=== PATIENT | male | born 1960 | race Caucasian/White ===

== ENCOUNTER → 2017-04-24 | Outpatient (CLI) | payer MEDICARE, MEDICAID ==
--- NOTE | 2017-04-24 13:28 | Diagnostic Imaging Report ---
EXAMINATION: Three views of the left toes. INDICATION: Injury to the left great toe. FINDINGS: Along the dorsal aspect of the base of the distal phalanx of the great toe, there is a bone fragment that appears well-corticated measuring 4 mm. This is favored to be related to an old injury. No definitive acute fracture is seen. No subluxation or dislocation. No radiopaque foreign body. IMPRESSION: A 4 mm bone fragment at the dorsal aspect of the base of the distal phalanx of the great toe appears well-corticated and is favored to be related to an old injury. If this is the site of injury and tenderness, then an acute component could be considered. Correlate with focal physical exam. Dictated by: Dictated on workstation # [id number]
--- NOTE | 2017-04-24 13:48 | Diagnostic Imaging Report ---
EXAMINATION: Three views of the left foot. INDICATION: Fall. FINDINGS: There is a 4 mm corticated fragment along the distal aspect of the base of the distal phalanx of the left great toe. This is favored to be secondary to an old injury. No acute fracture is seen. There is mild degenerative change along the first MTP joint and varus deformity along the interphalangeal joint. No radiopaque foreign body is noted. IMPRESSION: There is a 4 mm well-corticated fragment along the dorsal aspect of the base of the distal phalanx of the left great toe which is favored to be secondary to an old injury. No definite acute fracture. Correlate clinically. Dictated by: Dictated on workstation # [id number]
== END ==
LOC: RAD 08:54
PROVIDERS: ATTEND Nurse Practitioner Family
DX: M79.675 Pain in left toe(s) (principal); M79.672 Pain in left foot; W19.XXXA Unspecified fall, initial encounter
CPT/HCPCS: 73630; 73660

== ENCOUNTER → 2017-08-12 | Outpatient (CLI) | payer MEDICARE, MEDICAID ==
--- NOTE | 2017-08-12 16:43 | Diagnostic Imaging Report ---
Three views of the right shoulder. INDICATION: Fall. FINDINGS: No fracture, dislocation, or radiopaque foreign body. The acromioclavicular joint demonstrates minimal inferior osteophytes and degenerative changes. The glenohumeral joint appears unremarkable. IMPRESSION: Unremarkable exam. Dictated by: Dictated on workstation # [id number]
--- NOTE | 2017-08-12 16:50 | Diagnostic Imaging Report ---
Three views of the right wrist. INDICATION: Injury. FINDINGS: No fracture, dislocation or radiopaque foreign body is seen. Joint alignment appears satisfactory. IMPRESSION: Unremarkable exam. Dictated by: Dictated on workstation # [id number]
== END ==
LOC: RAD 13:15
PROVIDERS: ATTEND Nurse Practitioner Family
DX: S69.91XA Unspecified injury of right wrist, hand and finger(s), initial encounter (principal); S49.91XA Unspecified injury of right shoulder and upper arm, initial encounter; W19.XXXA Unspecified fall, initial encounter; Y99.8 Other external cause status
CPT/HCPCS: 73030; 73110

== ENCOUNTER → 2022-02-16 | Outpatient (CLI) | payer MEDICARE, MEDICAID ==
[2022-02-16 12:13] LABS: HEMATOCRIT 42 % (40-54); HEMOGLOBIN 14.3 g/dL (13.3-17.7); MEAN CORPUSCULAR HEMOGLOBIN 31 pg (25-34); MEAN CORPUSCULAR HGB CONC 34 g/dL (32-36); MEAN CORPUSCULAR VOLUME 92 fL (80-99); MEAN PLATELET VOLUME 9.6 fL (9.0-12.2); PLATELET COUNT 197 10^3/uL (130-400); WHITE BLOOD COUNT 9.2 10^3/uL (4.3-11.0)
[2022-02-16 12:30] LABS: ALBUMIN 4.1 GM/DL (3.2-4.5); BILIRUBIN,TOTAL 0.3 MG/DL (0.1-1.0); CREATININE SERUM 0.93 MG/DL (0.60-1.30); TOTAL PROTEIN 7.2 GM/DL (6.4-8.2)
[2022-02-16 12:50] LABS: CARBAMAZEPINE (TEGRETOL) 8.2 UG/ML (4.0-12.0)
== END ==
LOC: CARD 12:00
PROVIDERS: ATTEND Family Medicine
DX: E03.9 Hypothyroidism, unspecified (principal); I10 Essential (primary) hypertension; R00.1 Bradycardia, unspecified; R50.9 Fever, unspecified
CPT/HCPCS: 36415; 80053; 80156; 84443; 84484; 85027; 93005

== ENCOUNTER → 2022-08-17 | Outpatient (CLI) | payer MEDICARE, MEDICAID ==
--- NOTE | 2022-08-17 12:51 | Diagnostic Imaging Report ---
INDICATION: FALL, RT KNEE PAIN COMPARISON: None. FINDINGS: 3 views of the right knee joint demonstrate no acute fracture or dislocation. No focal osseous lesions are seen. Mild osteoarthritic changes are noted. No significant joint effusion is seen. The surrounding soft tissue structures are unremarkable. There are no radiopaque foreign bodies. IMPRESSION: 1. No acute fractures or dislocations of the right knee joint. 2. Mild osteoarthritic changes. Dictated by: Dictated on workstation # [id number]
== END ==
LOC: RAD 11:15
PROVIDERS: ATTEND Family Medicine
DX: M17.11 Unilateral primary osteoarthritis, right knee (principal)
CPT/HCPCS: 73562

== ENCOUNTER 2022-11-23 15:08 | Inpatient (IN) | payer MEDICARE, MEDICAID ==
[~2022-11-23] VITALS: Ht 175.3 cm; Wt 103.7 kg
--- NOTE | 2022-11-23 15:32 | ED Cardiac General ---
History of Present Illness General Chief Complaint: Cardiac/General Problems Stated Complaint: LOW HR Source: patient Exam Limitations: no limitations History of Present Illness Date Seen by Provider: Nov 23, 2022 Time Seen by Provider: 15:27 Initial Comments 62-year-old intellectually disabled male from a correction here in [place]. History is provided by his caregiver/staff from the correction. They report they were advised by Dr. Malhotra's office to come to the emergency room as they noted bradycardia on a routine vitals check today. They state he has been acting normal and has not complained of any chest pain or shortness of breath. Has a history of hypertension and is on a combination drug of lisinopril/HCTZ. They state that his heart rate has been low in the 30s for the past 2 days but blood pressure has been fine and he has been acting normally. Timing/Duration: changing over time Severity: moderate NTG SL MANAGER OF BUSINESS: No ASA po MANAGER OF BUSINESS: No Associated Systoms: Denies Symptoms Allergies and Home Medications Allergies Coded Allergies: phenytoin (Verified Allergy, Unknown, 11/23/22) Patient Home Medication List Home Medication List Reviewed: Yes Review of Systems Review of Systems Constitutional: see HPI Physical Exam Vital Signs Vital Signs - First Documented 11/23/22 15:17 Temp 36.7 Pulse 33 Resp 16 B/P (MAP) 171/90 (117) Pulse Ox 95 O2 Delivery Room Air Capillary Refill : Height, Weight, BMI Height: '" Weight: lbs. oz. kg; BMI Method: General Appearance: No Apparent Distress, WD/WN, Other (Alert and oriented. Walks into the emergency room. Voices no complaints. Blood pressure is fine at 170/90. Heart rate is 33 with no correlation between P waves and QRS complexes consistent with a third-degree heart block.) Neck: Full Range of Motion, Normal Inspection Respiratory: No Accessory Muscle Use, No Respiratory Distress Cardiovascular: Normal Peripheral Pulses, Bradycardia Gastrointestinal: Normal Bowel Sounds, Non Tender, Soft Extremity: Normal Capillary Refill, Normal Inspection Neurologic/Psychiatric: Alert, Oriented x3 Skin: Normal Color, Warm/Dry Progress/Results/Core Measures Results/Orders Lab Results Laboratory Tests Test 11/23/22 15:49 Range/Units White Blood Count 9.4 4.3-11.0 10^3/uL Red Blood Count 4.60 4.30-5.52 10^6/uL Hemoglobin 14.5 13.3-17.7 g/dL Hematocrit 42 40-54 % Mean Corpuscular Volume 90 80-99 fL Mean Corpuscular Hemoglobin 32 25-34 pg Mean Corpuscular Hemoglobin Concent 35 32-36 g/dL Red Cell Distribution Width 11.9 10.0-14.5 % Platelet Count 231 130-400 10^3/uL Mean Platelet Volume 10.0 9.0-12.2 fL Immature Granulocyte % (Auto) 0 % Neutrophils (%) (Auto) 65 42-75 % Lymphocytes (%) (Auto) 22 12-44 % Monocytes (%) (Auto) 10 0-12 % Eosinophils (%) (Auto) 3 0-10 % Basophils (%) (Auto) 1 0-10 % Neutrophils # (Auto) 6.1 1.8-7.8 X 10^3 Lymphocytes # (Auto) 2.1 1.0-4.0 X 10^3 Monocytes # (Auto) 0.9 0.0-1.0 X 10^3 Eosinophils # (Auto) 0.3 0.0-0.3 10^3/uL Basophils # (Auto) 0.1 0.0-0.1 10^3/uL Immature Granulocyte # (Auto) 0.0 0.0-0.1 10^3/uL Prothrombin Time 13.6 12.2-14.7 SEC INR Comment 1.0 0.8-1.4 Activated Partial Thromboplast Time 29 24-35 SEC Sodium Level 135 135-145 MMOL/L Potassium Level 4.0 3.6-5.0 MMOL/L Chloride Level 102 98-107 MMOL/L Carbon Dioxide Level 24 21-32 MMOL/L Anion Gap 9 5-14 MMOL/L Blood Urea Nitrogen 21 H 7-18 MG/DL Creatinine 0.93 0.60-1.30 MG/DL Estimat Glomerular Filtration Rate 92 BUN/Creatinine Ratio 23 Glucose Level 102 70-105 MG/DL Calcium Level 9.1 8.5-10.1 MG/DL Corrected Calcium 9.0 8.5-10.1 MG/DL Magnesium Level 2.4 1.6-2.4 MG/DL Total Bilirubin 0.2 0.1-1.0 MG/DL Aspartate Amino Transf (AST/SGOT) 13 5-34 U/L Alanine Aminotransferase (ALT/SGPT) 12 0-55 U/L Alkaline Phosphatase 73 40-136 U/L Myoglobin 61.3 10.0-92.0 NG/ML Troponin I < 0.028 <0.028 NG/ML B-Type Natriuretic Peptide 34.2 <100.0 PG/ML Total Protein 7.1 6.4-8.2 GM/DL Albumin 4.1 3.2-4.5 GM/DL Vital Signs/I&O 11/23/22 11/23/22 15:17 15:17 Temp 36.7 Pulse 33 Resp 16 B/P (MAP) 171/90 (117) Pulse Ox 95 O2 Delivery Room Air Room Air Departure Communication (Admissions) Will order troponin CBC CMP to evaluate for contributing factors. He is perfusing well, mentating well, not unstable and does not need emergent t ranscutaneous or transvenous pacing. He is not on any calcium channel or beta blockers. He has a history of hypertension and is on lisinopril/HCTZ. 164-CBC shows no evidence of anemia, hemoglobin stable. Chemistry shows normal BUN and creatinine, negative troponin. Normal potassium. Patient has remained with a heart rate of 30-35 with a high degree AV block here in the emergency room. I spoke with Dr. Schneider. Spoke with Dr. Pisano from hospitalist services. Will admit to cardiology, consult hospitalist services. ICU status overnight. We will keep transcutaneous pads on the patient in case he develops hemodynamic compromise however currently his blood pressure is maintained in the 160 range. Impression Primary Impression: Third degree heart block Disposition: ADMITTED INPATIENT Condition: Stable Admissions Decision to Admit Reason: Admit from ER (General) Decision to Admit/Date: Nov 23, 2022 Time/Decision to Admit Time: 15:30 Departure-Patient Inst. Referrals: CHRISTIAN LOERA DO (PCP/Family) Primary Care Physician VIET GUILLEN APRN Nov 23, 2022 15:32
--- NOTE | 2022-11-23 15:56 | Diagnostic Imaging Report ---
INDICATION: Bradycardia. TIME OF EXAM: 3:42 p.m. No prior studies are available for comparison. FINDINGS: The heart size appears normal. Lungs are clear. No infiltrates are seen. There is no effusion or pneumothorax. IMPRESSION: No acute cardiopulmonary process is detected. Dictated by: Dictated on workstation # [id number]
[2022-11-23 15:57] LABS: BASOPHILS # (AUTO) 0.1 10^3/uL (0.0-0.1); BASOPHILS % (AUTO) 1 % (0-10); EOSINOPHILS # (AUTO) 0.3 10^3/uL (0.0-0.3); EOSINOPHILS % (AUTO) 3 % (0-10); HEMATOCRIT 42 % (40-54); HEMOGLOBIN 14.5 g/dL (13.3-17.7); LYMPHOCYTES # (AUTO) 2.1 X 10^3 (1.0-4.0); LYMPHOCYTES % (AUTO) 22 % (12-44); MEAN CORPUSCULAR HEMOGLOBIN 32 pg (25-34); MEAN CORPUSCULAR HGB CONC 35 g/dL (32-36); MEAN CORPUSCULAR VOLUME 90 fL (80-99); MONOCYTES # (AUTO) 0.9 X 10^3 (0.0-1.0); MONOCYTES % (AUTO) 10 % (0-12); NEUTROPHILS # (AUTO) 6.1 X 10^3 (1.8-7.8); NEUTROPHILS % (AUTO) 65 % (42-75); PLATELET COUNT 231 10^3/uL (130-400); WHITE BLOOD COUNT 9.4 10^3/uL (4.3-11.0)
[2022-11-23 16:10] LABS: PROTHROMBIN TIME PATIENT 13.6 SEC (12.2-14.7)
[2022-11-23 16:13] LABS: ALBUMIN 4.1 GM/DL (3.2-4.5)
[2022-11-23 16:15] LABS: CALCIUM 9.1 MG/DL (8.5-10.1)
[2022-11-23 16:16] LABS: TOTAL PROTEIN 7.1 GM/DL (6.4-8.2)
[2022-11-23 16:18] LABS: BILIRUBIN,TOTAL 0.2 MG/DL (0.1-1.0)
[2022-11-23 16:20] LABS: CREATININE SERUM 0.93 MG/DL (0.60-1.30)
[2022-11-23 16:22] LABS: MAGNESIUM 2.4 MG/DL (1.6-2.4)
--- NOTE | 2022-11-23 17:16 | Cardiology History & Physical ---
HPI-Cardiology Cardiology H&P Date of Admission 11/23/22 Primary Care Physician Campos Pablo Attending Physician ANTIONE PINO MD, MA, FACP, FACC, FSCAI, CCDS Consulting Physician [facility] 62 yo man with intellectual disablilities, resident of a fdc, found to have low pulse rate on routine vitals at his home and sent to the ER for further eval. He sees Dr Nunez in Cardiology f/u and is known to have advanced/complete AV block with junctional escape that has been found on routine ECGs and from which he remains asymptomatic. He has not been report cp or palp or syncope or other symptoms. He currently does not report any symptoms. He is accompanied by his niece who helped with history. Review of Systems-Cardiology Review of Systems Constitutional: No weight loss, No weight gain; other Eyes: No vision change Ears/Nose/Throat: No ear discharge, No nasal drainage, No recent hearing loss Respiratory: No shortness of breath Cardiovascular: As described under HPI Gastrointestinal: No nausea, No vomiting Genitourinary: No dysuria, No hematuria Musculoskeletal: No back pain, No joint pain Skin: No rash, No ulcerations Psychiatric/Neurological: other (weakness and contractures of L hand, crhonic) Hematologic: No bleeding abnormalities AIT-Tesygy-Nfqooo Hx Patient Social History Smoking Status: Never a Smoker Have you traveled recently?: No Alcohol Use?: No Pt feels they are or have been: No Past Medical History PMH As described under Assessment. Family Medical History Family Medical History: No fam h/o early CAD or SCD Allergies and Home Medications Allergies Coded Allergies: phenytoin (Verified Allergy, Unknown, 11/23/22) Patient Home Medication List Home Medication List Reviewed: Yes Physical Exam-Cardiology Physical Exam Vital Signs/I&O 11/23/22 11/23/22 15:17 15:17 Temp 36.7 Pulse 33 Resp 16 B/P (MAP) 171/90 (117) Pulse Ox 95 O2 Delivery Room Air Room Air Capillary Refill : Less Than 3 Seconds Constitutional: other (slow to respond but appears oriented to person and place and answers some queestions) HEENT: PERRL, hearing is well preserved; No xanthelasmas are seen Neck: carotid pulses are 2 + bilaterally Respiratory: No accessory muscle use; chest expansion is symmetric, other (good, bilat air enty) Cardiovascular: regular rate-rhythm, S1 and S2, systolic murmur (soft STEVE at card base) Gastrointestinal: No tender; soft; No guarding, No rebound; audible bowel sounds Extremities: No clubbing, No cyanosis, No significant edema Neurologic/Psychiatric: other (mental status exam as noted above; able to move all limbs, but power is diminished in the L hand and there appear to be contractures) Skin: No rash, No ulcerations; other (some abrasions on the L wrist) Data Review Labs Laboratory Tests 11/23/22 15:49: White Blood Count 9.4, Red Blood Count 4.60, Hemoglobin 14.5, Hematocrit 42, Mean Corpuscular Volume 90, Mean Corpuscular Hemoglobin 32, Mean Corpuscular Hemoglobin Concent 35, Red Cell Distribution Width 11.9, Platelet Count 231, Mean Platelet Volume 10.0, Immature Granulocyte % (Auto) 0, Neutrophils (%) (Auto) 65, Lymphocytes (%) (Auto) 22, Monocytes (%) (Auto) 10, Eosinophils (%) (Auto) 3, Basophils (%) (Auto) 1, Neutrophils # (Auto) 6.1, Lymphocytes # (Auto) 2.1, Monocytes # (Auto) 0.9, Eosinophils # (Auto) 0.3, Basophils # (Auto) 0.1, Immature Granulocyte # (Auto) 0.0, Prothrombin Time 13.6, INR Comment 1.0, Activated Partial Thromboplast Time 29, Sodium Level 135, Potassium Level 4.0, Chloride Level 102, Carbon Dioxide Level 24, Anion Gap 9, Blood Urea Nitrogen 21H, Creatinine 0.93, Estimat Glomerular Filtration Rate 92, BUN/Creatinine Ratio 23, Glucose Level 102, Calcium Level 9.1, Corrected Calcium 9.0, Magnesium Level 2.4, Total Bilirubin 0.2, Aspartate Amino Transf (AST/SGOT) 13, Alanine Aminotransferase (ALT/SGPT) 12, Alkaline Phosphatase 73, Myoglobin 61.3, Troponin I < 0.028, B-Type Natriuretic Peptide 34.2, Total Protein 7.1, Albumin 4.1 Laboratory Tests 11/23/22 15:49 A/P-Cardiology Assessment/Admission Diagnosis Advanced AV block - asymptomatic - apparently chronic. Documented in his last visit to Dr Nunez in Jul 2022 Hypertension - on lisinopril-HCTZ Hyperlipidemia - on atorvastatin ?seizure disorder - on carbamazepine Cognitive/intellectual disabilities Weakness/contractures of L hand, chronic Admission Status: Inpatient Order (span 2 midnights) Reason for Inpatient Admission: Advanced AV block Discussion and Recomendations * Monitor. This appears to be a chronic problem that has been treated conservatively in the past * If long pauses or if symptomatic or if heart rate remains profoundly low, then consider perm pacemaker * Continue home meds * Echo * Monitor labs Clinical Quality Measures AMI/AHF: ASA po Prior to arrival: ANTIONE López MD FACP FACC CCDS Nov 23, 2022 17:16
--- NOTE | 2022-11-23 17:23 | Tele-ICU Progress Note ---
Subjective Date Seen by a Provider: Nov 23, 2022 Subjective/Events-last exam This virtual visit was conducted using real time audio/video. Thank you for asking us to see this patient for asymptomatic complete heart block. Intellectually disabled, lives in residential. Recent events: Staff found HR 30s when checking vitals. PMH: HTN on Lisinopril/HCTZ. PE: Appears comfortable. HR 30-35, BP 170/90. HEENT: No obvious masses, adenopathy or JVD. Chest: clear to auscultation. CV: CHB. S1 S2 No murmur or added sounds. Abd: Non-tender. Bowel sounds Y. : Unremarkable. Viramontes . COMPLIANCE PROJECT MANAGER/psychiatric: Grossly intact. No obvious focal findings. Extremities: edema. Capillary refill < 3 seconds. Skin: unremarkable. Results: Elevated BUN 21 CXR: Poor quality, clear abdi.. Available chart/ vitals / labs / images reviewed. Video assessment done using teleICU camera, rest of exam as per RN. A/P: Critical Care: critically ill patient. Cont. monitoring, IVF, transcutaneous pads. Discussed with RN Stacy. Asked RN to reach out to eICU if any questions or concerns later. Time spent with patient/coordination of care with other health professionals (mins): 20. Sepsis Event Evaluation Height, Weight, BMI Height: '" Weight: lbs. oz. kg; 28.00 BMI Method: Exam Exam Patient acknowledged, consented, and participated in this virtual visit which was conducted using real time audio/video Vital Signs Date Time Temp Pulse Resp B/P (MAP) Pulse Ox O2 Delivery O2 Flow Rate FiO2 11/23/22 15:17 95 Room Air 11/23/22 15:17 36.7 33 16 171/90 (117) Room Air Height & Weight Height: '" Weight: lbs. oz. kg; 28.00 BMI Method: General Appearance: No Apparent Distress, WD/WN, Other (Alert and oriented. Walks into the emergency room. Voices no complaints. Blood pressure is fine at 170/90. Heart rate is 33 with no correlation between P waves and QRS complexes consistent with a third-degree heart block.) Neck: Full Range of Motion, Normal Inspection Respiratory: No Accessory Muscle Use, No Respiratory Distress Cardiovascular: Normal Peripheral Pulses, Bradycardia Capillary Refill: Less Than 3 Seconds Extremity: Normal Capillary Refill, Normal Inspection Neurologic/Psychiatric: Alert, Oriented x3 Skin: Normal Color, Warm/Dry Results Lab Laboratory Tests 11/23/22 15:49 Assessment/Plan Assessment/Plan See free text. Critical Care: Critically Ill Patient DAVIDA STRONG MD Nov 23, 2022 17:23
[2022-11-23] MEDS: NS IV 1000 ML 1,000 ML IV SCH (18:50)
[2022-11-23] MEDS: carBAMazepine 100 MG (TEGretol) CHEW PO SCH (20:39)
[2022-11-23] MEDS ORDERED: carBAMazepine 200 MG (TEGretol) TAB PO SCH (21:00)
[2022-11-24 04:21] LABS: BASOPHILS # (AUTO) 0.1 10^3/uL (0.0-0.1); BASOPHILS % (AUTO) 1 % (0-10); EOSINOPHILS # (AUTO) 0.4 10^3/uL (0.0-0.3); EOSINOPHILS % (AUTO) 4 % (0-10); HEMATOCRIT 41 % (40-54); LYMPHOCYTES # (AUTO) 2.4 10^3/uL (1.0-4.0); LYMPHOCYTES % (AUTO) 27 % (12-44); MEAN CORPUSCULAR HEMOGLOBIN 31 pg (25-34); MEAN CORPUSCULAR HGB CONC 35 g/dL (32-36); MEAN CORPUSCULAR VOLUME 90 fL (80-99); MEAN PLATELET VOLUME 10.4 fL (9.0-12.2); MONOCYTES # (AUTO) 0.9 10^3/uL (0.0-1.0); MONOCYTES % (AUTO) 10 % (0-12); NEUTROPHILS # (AUTO) 5.2 10^3/uL (1.8-7.8); NEUTROPHILS % (AUTO) 58 % (42-75); PLATELET COUNT 208 10^3/uL (130-400)
[2022-11-24 04:33] LABS: ALBUMIN 3.7 GM/DL (3.2-4.5); POTASSIUM 3.8 MMOL/L (3.6-5.0)
[2022-11-24 04:34] LABS: CALCIUM 9.1 MG/DL (8.5-10.1)
[2022-11-24 04:36] LABS: TOTAL PROTEIN 6.5 GM/DL (6.4-8.2)
[2022-11-24 04:38] LABS: BILIRUBIN,TOTAL 0.3 MG/DL (0.1-1.0)
[2022-11-24 04:39] LABS: CREATININE SERUM 0.86 MG/DL (0.60-1.30)
[2022-11-24 04:43] LABS: MAGNESIUM 2.2 MG/DL (1.6-2.4)
--- NOTE | 2022-11-24 08:50 | Consultation - Hospitalist ---
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 He ahs known bradycardia since February of last year and has been following with Dr Nunez. He is normaly in the 40s. Yesterday staff at [facility] noted him ot have a heart rate in nery 30s and brought him to the hospital for evaluation. His sister is at bedside and provides all of the history. He was found to have a complete heart block and admitted to cardiology for evaluation for possible pacemaker. He has had rates as low at 27 overnight but remains asymptomatic. Source: patient Date Seen 11/24/22 Attending Physician Campos Pablo DO PCP Admitting Physician: Ruben Schneider MD [facility] Attending Physician: Ruben Schneider MD [facility] Referring Physician Date of Admission Nov 23, 2022 at 16:41 Home Medications & Allergies Home Medications Reviewed patient Home Medication Reconciliation performed by pharmacy medication reconciliations ceramics technician and/or nursing. Patients Allergies have been reviewed. Allergies Allergies Coded Allergies phenytoin (Verified Allergy, Unknown, 11/23/22) Past Nhtkapg-Twsbod-Ekohhw Hx Patient Social History Employed/Student: unemployed Tobacco Use?: No Smoking Status: Never a Smoker Smokeless Tobacco Frequency: Never a User Use of E-Cig and/or Vaping dev: No Use of E-Cig and/or Vaping Khai: Never a User Substance use?: No Alcohol Use?: No Pt feels they are or have been: No Immunizations Up To Date Date of Influenza Vaccine: Aug 23, 2022 Current Status Advance Directives: Yes Communicates: Verbally Primary Language: Angolan Preferred Spoken Language: Angolan Is interpretation needed?: No Sensory deficits: Vision impairment Implanted or Applied Medical D: Orthopedic hardware Past Medical History Meningitis (at 9mo with left sided weakness and intellectual disability) Review of Systems Constitutional: see HPI Physical Exam Physical Exam Vital Signs Vital Signs - First Documented 11/23/22 15:17 Temp 36.7 Pulse 33 Resp 16 B/P (MAP) 171/90 (117) Pulse Ox 95 O2 Delivery Room Air Capillary Refill : Less Than 3 Seconds Height, Weight, BMI Height: '" Weight: lbs. oz. kg; 28.05 BMI Method: General Appearance: No Apparent Distress, WD/WN, Other (Alert and oriented. Walks into the emergency room. Voices no complaints. Blood pressure is fine at 170/90. Heart rate is 33 with no correlation between P waves and QRS complexes consistent with a third-degree heart block.) Neck: Full Range of Motion, Normal Inspection Respiratory: No Accessory Muscle Use, No Respiratory Distress Cardiovascular: Normal Peripheral Pulses, Bradycardia Gastrointestinal: Normal Bowel Sounds, Non Tender, Soft Extremity: Swelling (left ankle very minimal) Neurologic/Psychiatric: Alert, Oriented x3 Skin: Normal Color, Warm/Dry Results Results/Procedures Labs Laboratory Tests 11/23/22 15:49 11/24/22 03:40 Patient resulted labs reviewed. Imaging: Reviewed Imaging Report Imaging [facility], [place] NAME: KERI ROGEL [facility] REC#: [id number] PT STATUS: REG ER : 1960 PHYSICIAN: ELY RUBIO APRN ADMIT DATE: 11/23/22/ER Signed Date of Exam:11/23/22 CHEST 1 VIEW, AP/PA ONLY INDICATION: Bradycardia. TIME OF EXAM: 3:42 p.m. No prior studies are available for comparison. FINDINGS: The heart size appears normal. Lungs are clear. No infiltrates are seen. There is no effusion or pneumothorax. IMPRESSION: No acute cardiopulmonary process is detected. Dictated by: Dictated on workstation # [id number] Dict: 11/23/22 1554 Trans: 11/23/22 1558 [id number] Interpreted by: PAULA URBAN MD Electronically signed by: PAULA URBAN MD 11/23/22 1558 Assessment/Plan Assessment and Plan Assess & Plan/Chief Complaint Complete heart block Management per primary Consider pacemaker Made NPO for now until Dr Schneider sees him HTN BP 150s overnight, trend Intellectual disability Left side weakness No acute needs Sister is decision maker for patient Critical Care Critically Ill Patient Diagnosis/Problems Diagnosis/Problems (1) Intellectual disability (2) HTN (hypertension) (3) Third degree heart block Status: Acute Clinical Quality Measures AMI/AHF: ASA po Prior to arrival: ARIA Brady MD Nov 24, 2022 08:50
[2022-11-24] MEDS ORDERED: ENOXAPARIN 40 MG/0.4 ML (LOVENOX) SYR SC ONE (10:00)
[2022-11-24] MEDS: lisINopril 40 MG (PRINIVIL) TABLET PO SCH (10:50)
[2022-11-24] MEDS: carBAMazepine 100 MG (TEGretol) CHEW PO SCH ×2 (10:51→20:18)
[2022-11-24] MEDS ORDERED: ENOXAPARIN 40 MG/0.4 ML (LOVENOX) SYR SC NR (11:00)
--- NOTE | 2022-11-24 11:08 | Progress Note - Cardiology ---
Cardiology SOAP Progress Note Subjective: He does not report cp or palp or shortness of breath or syncope or swelling or n/v/d or weakness Objective: I&O/Vital Signs 11/23/22 11/23/22 11/24/22 11/24/22 23:44 23:45 00:00 01:00 Temp 36.2 Pulse 46 41 Resp 23 26 B/P (MAP) 149/78 (101) 158/83 (108) Pulse Ox 98 96 95 O2 Delivery Room Air Room Air Room Air 11/24/22 11/24/22 11/24/22 11/24/22 01:00 02:00 03:00 03:12 Temp 36.0 Pulse 30 42 64 Resp 20 25 B/P (MAP) 147/81 (103) 176/91 (119) Pulse Ox 97 97 O2 Delivery Room Air Room Air 11/24/22 11/24/22 11/24/22 11/24/22 04:00 04:00 05:00 06:00 Pulse 55 56 43 Resp 16 16 16 B/P (MAP) 144/91 (108) 162/78 (106) 156/90 (112) Pulse Ox 98 96 95 94 O2 Delivery Room Air Room Air Room Air Room Air 11/24/22 11/24/22 11/24/22 11/24/22 07:00 07:00 07:54 08:00 Temp 36.0 Pulse 36 38 32 Resp 10 B/P (MAP) 168/82 (110) 169/98 (121) Pulse Ox 95 98 O2 Delivery Room Air Room Air 11/24/22 09:00 Pulse 37 B/P (MAP) 160/85 (110) Pulse Ox 96 O2 Delivery Room Air 11/24/22 00:00 Intake Total 400 ml Output Total 1100 ml Balance -700 ml Constitutional: other (slow to respond but appears oriented to person and place and answers some queestions) Respiratory: No accessory muscle use; chest expansion is symmetric, other (good, bilat air enty) Cardiovascular: regular rate-rhythm, S1 and S2, systolic murmur (soft STEVE at card base) Gastrointestional: No tender; soft; No guarding, No rebound; audible bowel sounds Extremities: No clubbing, No cyanosis, No significant edema Neurologic/Psychiatric: other (mental status exam as noted above; able to move all limbs, but power is diminished in the L hand and there appear to be co ntractures) Skin: No rash, No ulcerations; other (some abrasions on the L wrist) Results/Procedures: Labs Laboratory Tests 11/23/22 15:49: White Blood Count 9.4, Red Blood Count 4.60, Hemoglobin 14.5, Hematocrit 42, Mean Corpuscular Volume 90, Mean Corpuscular Hemoglobin 32, Mean Corpuscular Hemoglobin Concent 35, Red Cell Distribution Width 11.9, Platelet Count 231, Mean Platelet Volume 10.0, Immature Granulocyte % (Auto) 0, Neutrophils (%) (Auto) 65, Lymphocytes (%) (Auto) 22, Monocytes (%) (Auto) 10, Eosinophils (%) (Auto) 3, Basophils (%) (Auto) 1, Neutrophils # (Auto) 6.1, Lymphocytes # (Auto) 2.1, Monocytes # (Auto) 0.9, Eosinophils # (Auto) 0.3, Basophils # (Auto) 0.1, Immature Granulocyte # (Auto) 0.0, Prothrombin Time 13.6, INR Comment 1.0, Activated Partial Thromboplast Time 29, Sodium Level 135, Potassium Level 4.0, Chloride Level 102, Carbon Dioxide Level 24, Anion Gap 9, Blood Urea Nitrogen 21H, Creatinine 0.93, Estimat Glomerular Filtration Rate 92, BUN/Creatinine Ratio 23, Glucose Level 102, Calcium Level 9.1, Corrected Calcium 9.0, Magnesium Level 2.4, Total Bilirubin 0.2, Aspartate Amino Transf (AST/SGOT) 13, Alanine Aminotransferase (ALT/SGPT) 12, Alkaline Phosphatase 73, Myoglobin 61.3, Troponin I < 0.028, B-Type Natriuretic Peptide 34.2, Total Protein 7.1, Albumin 4.1 11/24/22 03:40: White Blood Count 9.0, Red Blood Count 4.50, Hemoglobin 14.0, Hematocrit 41, M dionte Corpuscular Volume 90, Mean Corpuscular Hemoglobin 31, Mean Corpuscular Hemoglobin Concent 35, Red Cell Distribution Width 11.8, Platelet Count 208, Mean Platelet Volume 10.4, Immature Granulocyte % (Auto) 0, Neutrophils (%) (Auto) 58, Lymphocytes (%) (Auto) 27, Monocytes (%) (Auto) 10, Eosinophils (%) (Auto) 4, Basophils (%) (Auto) 1, Neutrophils # (Auto) 5.2, Lymphocytes # (Auto) 2.4, Monocytes # (Auto) 0.9, Eosinophils # (Auto) 0.4H, Basophils # (Auto) 0.1, Immature Granulocyte # (Auto) 0.0, Sodium Level 136, Potassium Level 3.8, Chloride Level 103, Carbon Dioxide Level 23, Anion Gap 10, Blood Urea Nitrogen 19H, Creatinine 0.86, Estimat Glomerular Filtration Rate 97, BUN/Creatinine Ratio 22, Glucose Level 99, Calcium Level 9.1, Corrected Calcium 9.3, Magnesium Level 2.2, Total Bilirubin 0.3, Aspartate Amino Transf (AST/SGOT) 13, Alanine Am inotransferase (ALT/SGPT) 10, Alkaline Phosphatase 68, Total Protein 6.5, Albumin 3.7, Triglycerides Level 134, Cholesterol Level 159, LDL Cholesterol Direct 106, VLDL Cholesterol 27, HDL Cholesterol 33L, Thyroid Stimulating Hormone (TSH) 1.59 Laboratory Tests 11/23/22 15:49 11/24/22 03:40 A/P: Assessment: Advanced/complete AV block - asymptomatic and apparently chronic. Documented in his last visit to Dr Nunez in Jul 2022 - Echo of 11/24/22: LVEF 60-65%, mild enlargement of both atria, PASP 30-35 mmHg Hypertension - on lisinopril-HCTZ Hyperlipidemia - on atorvastatin ?seizure disorder - on carbamazepine Cognitive/intellectual disabilities Weakness/contractures of L hand, chronic Plan: * He does not have symptoms but heart is markedly low at times and the AV block appears to be complete. Accordingly, permanent pacemaker appears reasonable. I discussed the rationale, procedure, risks, benefits, potential complications, and alternatives of perm pacemaker with his sister who is his POA. She provides consent. Will schedule fo 11/25/22 * DVT prophylaxis with low dose enoxaparin today * Monitor labs Clinical Quality Measures AMI/AHF: ASA po Prior to arrival: ANTIONE López MD [facility] CCDS Nov 24, 2022 11:08
--- NOTE | 2022-11-24 11:44 | Tele-ICU Progress Note ---
Subjective Date Seen by a Provider: Nov 24, 2022 Time Seen by a Provider: 11:43 Subjective/Events-last exam (Tele-ICU Physician , Progress Note ) Service provided via interactive audio and video telecommunications E-CARE system to a patient admitted to ICU bed in [facility]. Patient is seen today due to persistent need of ICU care Available chart/ vitals / labs / Images reviewed Video assessment done using teleICU camera, rest of exam as per RN Discussed with RN Events overnight : Afebrile hemodynamically stable Respiratory - ra I/O = Drips: Pressors- no Consultants: coty Hospital course: (11/23) 62M with intellectual disabilities admitted for 3 Degree AV block. Asymptomatic A/P complete AV block. -Asymptomatic - for pacemaker 11/25 on carbamazepine - ? indications - to resume intellectually disabled male from a custodial Lines : peripg , (Central Line Necessity Reviewed) Viramontes: OG: Nutrition: Analgesia: Anxiety/ delirium VTE Prophylaxis: ashleigh full dose Stress Ulcer Prophylaxis: na Plans in collaboration with bedside consultants and IM MDs. Discussed with RN to reach out if any questions or concerns A total of _10 minutes of critical care time was devoted to this patient today, required to treat and/or prevent further deterioration of critical care condition ( as above ) . I am remotely monitoring this patient from another state. I am unable to do the bedside exam, and history/physical and pertinent information is taken from other notes in the computer and bedside staff. Sepsis Event Evaluation Height, Weight, BMI Height: '" Weight: lbs. oz. kg; 28.05 BMI Method: Exam Exam Patient acknowledged, consented, and participated in this virtual visit which w as conducted using real time audio/video Vital Signs Date Time Temp Pulse Resp B/P (MAP) Pulse Ox O2 Delivery O2 Flow Rate FiO2 11/24/22 11:00 31 16 160/97 (118) 98 Room Air 11/24/22 10:00 38 15 186/94 (124) 95 Room Air 11/24/22 09:00 37 160/85 (110) 96 Room Air 11/24/22 08:00 32 169/98 (121) 98 Room Air 11/24/22 07:54 36.0 11/24/22 07:00 38 11/24/22 07:00 36 10 168/82 (110) 95 Room Air 11/24/22 06:00 43 16 156/90 (112) 94 Room Air 11/24/22 05:00 56 16 162/78 (106) 95 Room Air 11/24/22 04:00 55 16 144/91 (108) 96 Room Air 11/24/22 04:00 98 Room Air 11/24/22 03:12 36.0 11/24/22 03:00 64 25 176/91 (119) 97 Room Air 11/24/22 02:00 42 20 147/81 (103) 97 Room Air 11/24/22 01:00 30 11/24/22 01:00 41 26 158/83 (108) 95 Room Air 11/24/22 00:00 46 23 149/78 (101) 96 Room Air 11/23/22 23:45 36.2 11/23/22 23:44 98 Room Air 11/23/22 23:00 42 20 151/90 (110) 96 Room Air 11/23/22 22:00 38 22 154/72 (99) 97 Room Air 11/23/22 21:00 32 20 136/62 (86) 96 Room Air 11/23/22 20:00 98 Room Air 11/23/22 20:00 32 19 169/67 (101) 96 Room Air 11/23/22 20:00 37.1 Room Air 11/23/22 19:00 87 23 172/100 (124) 96 Room Air 11/23/22 19:00 30 11/23/22 18:00 30 16 170/79 (109) 97 Room Air 11/23/22 17:57 30 11/23/22 17:30 36.7 37 18 200/101 (134) Room Air 11/23/22 17:30 98 Room Air 11/23/22 15:17 95 Room Air 11/23/22 15:17 36.7 33 16 171/90 (117) Room Air I & O 11/24/22 07:00 Intake Total 550 ml Output Total 1530 ml Balance -980 ml Height & Weight Height: '" Weight: lbs. oz. kg; 28.05 BMI Method: General Appearance: No Apparent Distress, WD/WN, Other (Alert and oriented. Walks into the emergency room. Voices no complaints. Blood pressure is fine at 170/90. Heart rate is 33 with no correlation between P waves and QRS complexes consistent with a third-degree heart block.) Neck: Full Range of Motion, Normal Inspection Respiratory: No Accessory Muscle Use, No Respiratory Distress Cardiovascular: Normal Peripheral Pulses, Bradycardia Capillary Refill: Less Than 3 Seconds Extremity: Swelling (left ankle very minimal) Neurologic/Psychiatric: Alert, Oriented x3 Skin: Normal Color, Warm/Dry Results Lab Laboratory Tests 11/23/22 15:49 11/24/22 03:40 Assessment/Plan Assessment/Plan 1 AMEE CONTRERAS MD Nov 24, 2022 11:44
[2022-11-24] MEDS: NS IV 1000 ML 1,000 ML IV SCH (12:29)
[2022-11-25] MEDS: NS IV 1000 ML 1,000 ML IV SCH ×2 (05:19→13:06)
--- NOTE | 2022-11-25 08:26 | Tele-ICU Progress Note ---
Subjective Date Seen by a Provider: Nov 25, 2022 Subjective/Events-last exam This virtual visit was conducted using real time audio/video. Thank you for asking us to see this patient for asymptomatic complete heart block. Intellectually disabled, [place] Recent events: HR 15 overnight and placed on 2 LPM O2. PMH: HTN on Lisinopril/HCTZ. PE: Appears comfortable on camera. HR 30-35, BP 170/90. O2 sat 98% on 2 LPM. HEENT: No obvious masses, adenopathy or JVD. Chest: clear to auscultation. CV: CHB. S1 S2 No murmur or added sounds. Abd: Non-tender. Bowel sounds Y. : Unremarkable. Viramontes N. [employer]/psychiatric: Grossly intact. No obvious focal findings. Extremities: edema. Capillary refill < 3 seconds. Skin: unremarkable. Results: Elevated BUN 19 CXR: Poor quality, clear abdi.. Available chart/ vitals / labs / images reviewed. Video assessment done using teleICU camera, rest of exam as per RN. A/P: Critical Care: critically ill patient. Cont. monitoring, IVF, transcutaneous pads. For PPM today. Discussed with RN Clarissa. Asked RN to reach out to eICU if any questions or concerns later. Time spent with patient/coordination of care with other health professionals (mins): 15. Sepsis Event Evaluation Height, Weight, BMI Height: '" Weight: lbs. oz. kg; 28.05 BMI Method: Exam Exam Patient acknowledged, consented, and participated in this virtual visit which was conducted using real time audio/video Vital Signs Date Time Temp Pulse Resp B/P (MAP) Pulse Ox O2 Delivery O2 Flow Rate FiO2 11/25/22 08:00 39 122/62 (82) 100 Nasal Cannula 4.00 11/25/22 08:00 36.7 11/25/22 07:18 Nasal Cannula 4.00 11/25/22 07:00 31 142/90 (107) 97 Nasal Cannula 4.00 11/25/22 07:00 32 11/25/22 06:00 25 125/81 (96) 100 Nasal Cannula 4.00 11/25/22 05:00 27 151/79 (103) 94 Nasal Cannula 4.00 11/25/22 04:00 33 105/69 (81) 94 Nasal Cannula 4.00 11/25/22 04:00 35.7 11/25/22 04:00 98 Room Air 11/25/22 03:00 30 145/87 (106) 100 Nasal Cannula 4.00 11/25/22 02:00 38 129/64 (85) 93 Nasal Cannula 4.00 11/25/22 01:19 Nasal Cannula 2.00 11/25/22 01:15 97 Nasal Cannula 4.00 11/25/22 01:00 27 123/66 (85) 97 Room Air 11/25/22 01:00 32 11/25/22 00:00 36.2 11/25/22 00:00 98 Room Air 11/25/22 00:00 32 147/76 (99) 96 Room Air 11/24/22 23:59 98 Room Air 11/24/22 23:00 29 171/104 (126) 94 Room Air 11/24/22 22:00 36 157/92 (113) 96 Room Air 11/24/22 21:00 31 23 158/93 (114) 99 Room Air 11/24/22 20:00 98 Room Air 11/24/22 20:00 36.6 11/24/22 20:00 30 22 146/78 (100) 95 Room Air 11/24/22 19:00 32 10 146/77 (100) 93 Room Air 11/24/22 19:00 32 11/24/22 18:00 31 11 144/90 (108) 96 Room Air 11/24/22 17:00 52 14 111/101 (104) 95 Room Air 11/24/22 16:00 97 Room Air 11/24/22 16:00 35 11 143/82 (102) 97 Room Air 11/24/22 15:56 36.5 11/24/22 15:00 33 14 154/107 (123) 96 Room Air 11/24/22 14:00 33 13 148/75 (99) 97 Room Air 11/24/22 13:00 31 24 139/74 (95) 95 Room Air 11/24/22 12:44 47 11/24/22 12:00 32 21 180/80 (113) 96 Room Air 11/24/22 12:00 97 Room Air 11/24/22 11:44 36.3 11/24/22 11:00 31 16 160/97 (118) 98 Room Air 11/24/22 10:00 38 15 186/94 (124) 95 Room Air 11/24/22 09:00 37 160/85 (110) 96 Room Air I & O 11/25/22 07:00 Intake Total 3775 ml Output Total 2200 ml Balance 1575 ml Height & Weight Height: '" Weight: lbs. oz. kg; 28.05 BMI Method: General Appearance: No Apparent Distress, WD/WN, Other (Alert and oriented. Walks into the emergency room. Voices no complaints. Blood pressure is fine at 170/90. Heart rate is 33 with no correlation between P waves and QRS complexes consistent with a third-degree heart block.) Neck: Full Range of Motion, Normal Inspection Respiratory: No Accessory Muscle Use, No Respiratory Distress Cardiovascular: Normal Peripheral Pulses, Bradycardia Capillary Refill: Less Than 3 Seconds Extremity: Swelling (left ankle very minimal) Neurologic/Psychiatric: Alert, Oriented x3 Skin: Normal Color, Warm/Dry Results Lab Laboratory Tests 11/23/22 15:49 11/24/22 03:40 Assessment/Plan Assessment/Plan See free text. Critical Care: Critically Ill Patient DAVIDA STRONG MD Nov 25, 2022 08:26
[2022-11-25] MEDS ORDERED: MIDAZOLAM 5 MG/5 ML (VERSED) VIAL ONE (10:10)
[2022-11-25] MEDS ORDERED: fentaNYL INJ 100 MCG/2 ML AMP ONE ×2 (10:10→11:57)
[2022-11-25] MEDS ORDERED: LIDOCAINE 1% INJ 30 ML (XYLOCAINE) VIAL ONE ×2 (10:11→11:53)
[2022-11-25] MEDS ORDERED: ceFAZolin INJECTION 1,000 MG ONE (10:12)
[2022-11-25] MEDS ORDERED: HEParin (CATH LAB) 1,000 ML IV ONE (10:12)
[2022-11-25] MEDS ORDERED: NS IV 1000 ML 1,000 ML ONE ×2 (10:12→13:02)
--- NOTE | 2022-11-25 10:28 | Progress Note - Hospitalist ---
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 He ahs known bradycardia since February of last year and has been following with Dr Nunez. He is normaly in the 40s. Yesterday staff at [facility] noted him ot have a heart rate in nery 30s and brought him to the hospital for evaluation. His sister is at bedside and provides all of the history. He was found to have a complete heart block and admitted to cardiology for evaluation for possible pacemaker. He has had rates as low at 27 overnight but remains asymptomatic. Subjective/Events-last exam Heart rate down as low as 19 overnight but asymptomatic and back up to 40s when he was awoken. No complaints per patient. He instead tells me about the things he makes at work (badge reels, fidget spinners, crosses). Sister at bedside. No concerns, ready for pacemaker placement. Objective Exam Vital Signs Vital Signs Date Time Temp Pulse Resp B/P (MAP) Pulse Ox O2 Delivery O2 Flow Rate FiO2 11/25/22 10:00 47 98 Nasal Cannula 4.00 11/25/22 08:00 36.7 11/24/22 21:00 23 Capillary Refill : Less Than 3 Seconds General Appearance: No Apparent Distress, Chronically ill, Obese Respiratory: Lungs Clear, No Respiratory Distress Cardiovascular: Bradycardia Results/Procedures Lab Patient resulted labs reviewed. Imaging: Reviewed Imaging Report Assessment/Plan Assessment and Plan Assess & Plan/Chief Complaint Complete heart block Management per primary Pacemaker today NPO Telemetry HTN BP improved overnight, trend Intellectual disability Left side weakness No acute needs Sister is decision maker for patient- guardian per records here Critical Care Critically Ill Patient Diagnosis/Problems Diagnosis/Problems (1) Intellectual disability (2) HTN (hypertension) (3) Third degree heart block Status: Acute Clinical Quality Measures AMI/AHF: ASA po Prior to arrival: ARIA Brady MD Nov 25, 2022 10:27
[2022-11-25] MEDS ORDERED: MIDAZOLAM 2 MG/2 ML (VERSED) VIAL ONE (11:54)
--- NOTE | 2022-11-25 13:24 | Cardiac Procedure Note-CS/ASA ---
Pre-Procedure Note Pre-Op Procedure Note Date of Available H&P: Nov 24, 2022 Date H&P Reviewed: Nov 25, 2022 Time H&P Reviewed: 11:10 History & Physical: H&P Reviewed, No changes noted Conscious Sedation Pre-Proced ASA Score 3 For ASA 3 and 4: Consider anesthesia and medical clearance. Also, for patients with a history of failed moderate sedation consider anesthesia. Airway Lungs Heart ASA score ASA 1: a normal healthy patient ASA 2: a patient with a mild systemic disease (mid diabetes, controlled hypertension, obesity ASA 3: a patient with a severe systemic disease that limits activity (angina, COPD, prior Myocardial infarction) ASA 4: a patient with an incapacitating disease that is a constant threat to life (CHF, renal failure) ASA 5: a moribund patient not expected to survive 24 hrs. (ruptured aneurysm) ASA 6: a declared brain- patient whose organs are being harvested. For emergent operations, add the letter E after the classification Mallampati Classification Grade 3 Sedation Plan Analgesia, Amnesia, Plan communicated to team members The patient is an appropriate candidate to undergo the planned procedure, sedation, and anesthesia. The patient immediately re-assessed prior to indication. ANTIONE PINO MD FACP FAC CCDS Nov 25, 2022 13:24
[2022-11-25] MEDS ORDERED: PATIENT MAY USE OWN MEDS, ALL PO SCH (13:30)
[2022-11-25] MEDS ORDERED: NS IV 1000 ML 1,000 ML IV SCH (13:30)
--- NOTE | 2022-11-25 13:31 | Progress Note - Cardiology ---
Cardiology SOAP Progress Note Subjective: No cp or palp or syncope Does not have shortness of breath at rest No n/v/d L sided weakness, chronic Objective: I&O/Vital Signs 11/25/22 11/25/22 11/25/22 11/25/22 02:00 03:00 04:00 04:00 Temp 35.7 Pulse 38 30 B/P (MAP) 129/64 (85) 145/87 (106) Pulse Ox 93 100 98 O2 Delivery Nasal Cannula Nasal Cannula Room Air O2 Flow Rate 4.00 4.00 11/25/22 11/25/22 11/25/22 11/25/22 04:00 05:00 06:00 07:00 Pulse 33 27 25 32 B/P (MAP) 105/69 (81) 151/79 (103) 125/81 (96) Pulse Ox 94 94 100 O2 Delivery Nasal Cannula Nasal Cannula Nasal Cannula O2 Flow Rate 4.00 4.00 4.00 11/25/22 11/25/22 11/25/22 11/25/22 07:00 07:18 08:00 08:00 Temp 36.7 Pulse 31 B/P (MAP) 142/90 (107) Pulse Ox 97 98 O2 Delivery Nasal Cannula Nasal Cannula Nasal Cannula O2 Flow Rate 4.00 4.00 2.00 11/25/22 11/25/22 11/25/22 08:00 09:00 10:00 Pulse 39 32 47 B/P (MAP) 122/62 (82) 133/91 (105) Pulse Ox 100 99 98 O2 Delivery Nasal Cannula Nasal Cannula Nasal Cannula O2 Flow Rate 4.00 4.00 4.00 11/25/22 00:00 Intake Total 2625 ml Output Total 1300 ml Balance 1325 ml Constitutional: other (slow to respond but appears oriented to person and place and answers some queestions) Respiratory: No accessory muscle use; chest expansion is symmetric, other (good, bilat air enty) Cardiovascular: regular rate-rhythm, S1 and S2, systolic murmur (soft STEVE at card base) Gastrointestional: No tender; soft; No guarding, No rebound; audible bowel sounds Extremities: No clubbing, No cyanosis, No significant edema Neurologic/Psychiatric: other (mental status exam as noted above; able to move all limbs, but power is diminished in the L upper and lower limbs and in the L hand there appear to be contractures) Skin: No rash, No ulcerations; other (some abrasions on the L wrist) A/P: Assessment: Advanced/complete AV block - asymptomatic and apparently chronic. Documented in his last visit to Dr Nunez in Jul 2022 - Echo of 11/24/22: LVEF 60-65%, mild enlargement of both atria, PASP 30-35 mmHg - s/p dual chamber pacemaker implantatin on 11/25/22 Hypertension - on lisinopril-HCTZ Hyperlipidemia - on atorvastatin ?seizure disorder - on carbamazepine Cognitive/intellectual disabilities Weakness of L side and contractures of L hand, chronic Plan: * Dual chamber pacemaker implantation carried out today after having obtained an informed consent * Monitor labs * Post-op care discussed with patient and his care providers Clinical Quality Measures AMI/AHF: ASA po Prior to arrival: ANTIONE López MD FACP FAC CCDS Nov 25, 2022 13:31
--- NOTE | 2022-11-25 14:00 | OPERATIVE REPORT ---
PREOPERATIVE DIAGNOSIS: Complete heart block. POSTOPERATIVE DIAGNOSIS: Complete heart block. PROCEDURE: Dual chamber pacemaker implantation. ESTIMATED BLOOD LOSS: Less than 20 mL. DESCRIPTION OF PROCEDURE: He was brought to the cardiac catheterization laboratory after having obtained an informed consent for permanent pacemaker implantation. The left prepectoral area was prepared and draped in the usual sterile fashion. 1% lidocaine was used for local anesthesia. Modified Seldinger technique was used to advance two guidewires into the left subclavian vein and the tips of the wires were placed in the right atrium. Sharp and blunt dissection was used to make a pacemaker pocket. Good hemostasis was assured. The pocket was packed with gauze soaked in saline. The wires were used to advance sheaths and the wire was removed. The sheaths were used to advance the leads and the sheaths were removed. All lead manipulation was carried out under fluoroscopy. These are active fixation leads. The right ventricular lead was placed at the right ventricular apex. The right atrial lead was placed in the right atrial appendage. Good capture and sensing thresholds were obtained. Right atrial capture threshold is 0.5 volts at 0.4 milliseconds. Pacing impedance is 475 ohms. P waves are measured at 3.9 millivolts. Right ventricular lead impedance is 684 ohms. Capture threshold is 0.375 volts at 0.4 milliseconds. R waves were measured at 4.8 millivolts. The leads were secured to the prepectoral fascia using sleeves and 0 Ethibond. The gauze was removed from the pacemaker pocket. The pocket was thoroughly irrigated with saline. Good hemostasis was assured. The leads were attached to a dual chamber pacemaker. The pacemaker and the leads were placed in TYRX pouch and were placed in the pacemaker pocket and the pocket was closed in 2 layers using 3-0 Vicryl. The right atrial lead is Medtronic model 464902. The right ventricular lead is Medtronic model 788391. The serial number of the right atrial lead is [id number]. The serial number of the right ventricular lead [id number]. The model of the pacemaker is [id number] with serial number [id number]. The patient tolerated the procedure well. The pacemaker is in the DDDR mode. Mode switch is on. Lower rate is 60 beats per minute. Upper tracking rate is 130 beats per minute. Job ID: [id number] DocumentID: [id number] Dictated Date: 11/25/2022 13:37:02 Spacer Type Bar And Segment Date: 11/25/2022 13:59:00 Dictated By: ANTIONE PINO MD; JORGE; FACP; FACC;
[2022-11-25] MEDS: ceFAZolin INJECTION 1,000 MG in NS (IVPB) 50 ML IV SCH ×2 (14:21→21:07)
[2022-11-25] MEDS: lisINopril 40 MG (PRINIVIL) TABLET PO SCH (14:21)
[2022-11-25] MEDS: carBAMazepine 100 MG (TEGretol) CHEW PO SCH ×2 (14:22→20:32)
--- NOTE | 2022-11-25 16:06 | Diagnostic Imaging Report ---
CLINICAL INDICATION: Patient is status post pacemaker. EXAM: Portable chest x-ray upright view. COMPARISON: Chest x-ray dated 11/23/2022. FINDINGS: Lungs/pleura: Again seen is slight elevation of the right hemidiaphragm. Lungs are clear. There is no pneumothorax. There is no pleural effusion. Mediastinum: Unremarkable. Pulmonary vasculature: Unremarkable. Heart: Cardiac silhouette is upper limits of normal for portable projection. Cardiac pacemaker seen overlying the left chest, placed in the interim. These are in good position and component appears intact. Bones/extrathoracic soft tissue: Unremarkable. IMPRESSION: 1: There is no radiographic evidence of acute cardiopulmonary process. There is no pneumothorax. 2: There is interval placement of cardiac pacemaker overlying the left chest in good position. Dictated by: Dictated on workstation # [id number]
[2022-11-26 04:25] LABS: HEMATOCRIT 40 % (40-54); HEMOGLOBIN 13.7 g/dL (13.3-17.7); MEAN CORPUSCULAR HEMOGLOBIN 31 pg (25-34); MEAN CORPUSCULAR HGB CONC 35 g/dL (32-36); MEAN CORPUSCULAR VOLUME 91 fL (80-99); MEAN PLATELET VOLUME 10.1 fL (9.0-12.2); PLATELET COUNT 190 10^3/uL (130-400); WHITE BLOOD COUNT 10.2 10^3/uL (4.3-11.0)
[2022-11-26 04:43] LABS: ALBUMIN 3.6 GM/DL (3.2-4.5)
[2022-11-26 04:45] LABS: CALCIUM 8.6 MG/DL (8.5-10.1)
[2022-11-26 04:46] LABS: TOTAL PROTEIN 6.3 GM/DL (6.4-8.2)
[2022-11-26 04:48] LABS: BILIRUBIN,TOTAL 0.4 MG/DL (0.1-1.0)
[2022-11-26 04:50] LABS: CREATININE SERUM 0.81 MG/DL (0.60-1.30)
[2022-11-26] MEDS: ceFAZolin INJECTION 1,000 MG in NS (IVPB) 50 ML IV SCH (05:12)
[2022-11-26] MEDS: NS IV 1000 ML 1,000 ML IV SCH (05:12)
[2022-11-26 07:56] VITALS: BP 167/101
[2022-11-26] MEDS: carBAMazepine 100 MG (TEGretol) CHEW PO SCH (08:40)
[2022-11-26] MEDS: lisINopril 40 MG (PRINIVIL) TABLET PO SCH (08:40)
[2022-11-26] MEDS ORDERED: TERB250T88 PO (10:26)
[2022-11-26] MEDS ORDERED: HYDR453. TP (10:26)
[2022-11-26] MEDS ORDERED: OXYB5TAB13 PO (10:26)
[2022-11-26] MEDS ORDERED: LOPE-175 PO (10:26)
[2022-11-26] MEDS ORDERED: SERT-414 PO (10:26)
[2022-11-26] MEDS ORDERED: LISI1TAB46 PO (10:26)
[2022-11-26] MEDS ORDERED: MELO15TA39 PO (10:26)
[2022-11-26] MEDS ORDERED: NEOM1OIN19 TP (10:26)
[2022-11-26] MEDS ORDERED: CALC500T7 PO (10:26)
[2022-11-26] MEDS ORDERED: DIPH25TA65 PO (10:26)
[2022-11-26] MEDS ORDERED: MAGN400O7 PO (10:26)
[2022-11-26] MEDS ORDERED: CARB200T6 PO (10:26)
[2022-11-26] MEDS ORDERED: ACET325T38 PO (10:26)
[2022-11-26] MEDS ORDERED: GUAI5LIQ14 PO (10:26)
[2022-11-26] MEDS ORDERED: POLY30DR6 OU (10:26)
[2022-11-26] MEDS ORDERED: ATOR20TA66 PO (10:26)
[2022-11-26] MEDS ORDERED: ASPI-1238 PO (10:26)
--- NOTE | 2022-11-26 10:40 | Discharge Inst-Post CATH ---
Discharge Inst-CATH/EP Problems Reviewed?: Yes Post Cardiac Cath/EP D/C Inst Follow Up/Plan Appointment with Dr. Nunez's office in 1 week <b>CARDIAC CATH/EP PROCEDURE DISCHARGE INSTRUCTIONS</b> ACTIVITY * Go Home directly and rest. * Limit activity of the leg (or wrist if it was used) for 7 days including aerobics, swimming, jogging, bicycling, etc. * Restrict stair-climbing for 7 days if possible, if not, climb up with your n on-cath leg, then bring together on the same step. * Avoid lifting, pushing, pulling or excessive movement of the affected ex tremity for 7 days. * Customary sexual activity may be resumed after 2 days-use caution not to use a position that strains or causes pain to the affected extremity. * No driving for 24 hours. * NO SMOKING. * Avoid straining for bowel movements for 7 days. * Gentle walking on level ground is allowed. * Returning to work will depend on the type of procedure and the results. Your doctor will discuss this with you. CALL YOUR DOCTOR FOR ANY OF THE FOLLOWING: *If bleeding from the puncture site occurs- Apply gentle pressure to site with clean cloth and call your doctor or EMS. * If a knot or lump forms under the skin, increases in size, or causes pain. * If bruising appears to be worsening or moving further down your leg instead of disappearing. * Temperature above 101 F. CARE OF YOUR GROIN INCISION; * Bruising or purple discoloration of the skin near the puncture site is common. * You may shower only, no bathtub bathing for 5 days. Be careful to avoid slipping as your leg may feel stiff. * If a closure device was used on your femoral artery, please see the attached guide regarding care of the device and your leg. * Leave dressing on FOR 24 hours. CARE OF YOUR WRIST INCISION; * Bruising or purple discoloration of the skin near the puncture site is common. * You may shower. * DO NOT submerge wrist. * Leave dressing on FOR 24 hours. KYARA NUNEZ MD Nov 26, 2022 10:40
[2022-11-26] MEDS ORDERED: CEFU500T63 PO (10:41)
--- NOTE | 2022-11-26 10:44 | Cardiology Discharge Summary ---
Discharge Summary Hospital Course Problems Reviewed?: Yes Hospital Course Date of Admission: Nov 23, 2022 at 16:41 Admission Diagnosis : Family Physician/Provider: Juanita Sheikh MD Date of Discharge: 11/26/22 Discharge Diagnosis: [ ] Hospital Course: [Severe bradycardia with complete heart block Status post dual chamber pacemaker implanted by Dr. Schneider on November 25, 2022. Site is healing well and feeling better. Hypertension, restart home medication monitor blood pressure Hyperlipidemia, continue on statin Depression, anxiety. History of cognitive disability.] Labs and Pending Lab Test: Laboratory Tests 11/26/22 04:00: White Blood Count 10.2, Red Blood Count 4.36, Hemoglobin 13.7, Hematocrit 40, Mean Corpuscular Volume 91, Mean Corpuscular Hemoglobin 31, Mean Corpuscular Hemoglobin Concent 35, Red Cell Distribution Width 11.7, Platelet Count 190, Mean Platelet Volume 10.1, Sodium Level 136, Potassium Level 4.0, Chloride Level 107, Carbon Dioxide Level 20L, Anion Gap 9, Blood Urea Nitrogen 16, Creatinine 0.81, Estimat Glomerular Filtration Rate 99, BUN/Creatinine Ratio 20, Glucose Level 93, Calcium Level 8.6, Corrected Calcium 8.9, Total Bilirubin 0.4, Aspartate Amino Transf (AST/SGOT) 13, Alanine Aminotransferase (ALT/SGPT) 12, Alkaline Phosphatase 67, Total Protein 6.3L, Albumin 3.6 Home Meds Active Reported Sertraline HCl 100 Mg Tablet 100 Mg PO DAILY Lisinopril-Hctz 20-12.5 mg Tab (Lisinopril/Hydrochlorothiazide) 20 Mg-12.5 Mg Tablet 2 Ea PO DAILY HOLD MEDICATION IF BP IS BELOW 110/60 AND CALL NURSING Visine Dry Eye Relief (Polyethylene Glycol 400) 1 % Drops 2 Drop OU Q6H PRN Tylenol (Acetaminophen) 325 Mg Tablet 650 Mg PO Q6H PRN Tums (Calcium Carbonate) 200 Mg Calcium (500 Mg) Tab.chew 1,000 Mg PO Q4H PRN MDD 5000MG Terbinafine HCl 250 Mg Tablet 250 Mg PO DAILY Triple Antibiotic Ointment Pkt (Neomycin/Bacitracin/Polymyxinb) 3.5 Mg-400 Unit- 5,000 Unit/Gram Oint.pack 1 Applic TP Q12H PRN Imodium A-D (Loperamide HCl) 2 Mg Capsule 2-4 Mg PO UD PRN MDD 8MG GIVE 2 TABS AFTER FIRST WATERY STOOL AND GIVE 1 AFTER EACH LOOSE STOOL Guaifenesin-Dm 100-10 mg/5 ml (Guaifenesin/Dextromethorphan) 100 Mg-10 Mg/5 Ml Liquid 10 Ml PO Q4H PRN Oxybutynin Chloride 5 Mg Tablet 5 Mg PO DAILY Milk of Magnesia (Magnesium Hydroxide) 400 Mg/5 Ml Oral.susp 30 Ml PO Q12H PRN Meloxicam 15 Mg Tablet 15 Mg PO DAILY GIVE AFTER BREAKFAST Hydrocortisone 1 % Cream..g. 1 Applic TP Q8H PRN Carbamazepine 200 Mg Tablet 200 Mg PO TID Benadryl Allergy (Diphenhydramine HCl) 25 Mg Tablet 25-50 Mg PO Q6H PRN Atorvastatin Calcium 20 Mg Tablet 20 Mg PO DAILY Aspirin EC (Aspirin) 81 Mg Tablet.dr 81 Mg PO DAILY Assessment/Pt DC Instructions Dual-chamber pacemaker implantation Pacemaker discharge instruction Arrangement for follow-up in 1 week for wound check Discharge Physical Examination Allergies: Coded Allergies: phenytoin (Verified Allergy, Unknown, 11/23/22) General Appearance: No Apparent Distress, WD/WN HEENT: PERRL/EOMI, TMs Normal, Normal ENT Inspection, Pharynx Normal Respiratory: Chest Non Tender, Lungs Clear, Normal Breath Sounds, No Accessory Muscle Use, No Respiratory Distress Cardiovascular: Regular Rate, Rhythm, No Edema, No Gallop, No JVD, No Murmur, Normal Peripheral Pulses Gastrointestinal: Normal Bowel Sounds, No Organomegaly, No Pulsatile Mass, Non Tender, Soft Extremity: Normal Capillary Refill, Normal Inspection, Normal Range of Motion, Non Tender, No Calf Tenderness Skin: Normal Color, Warm/Dry Neurologic/Psychiatric: Alert, No Motor/Sensory Deficits Clinical Quality Measures Admission Status Admission Status: Observation AMI/AHF: ASA po Prior to arrival: KYARA Perkins MD Nov 26, 2022 10:43
[2022-11-26 10:50] VITALS: BP 167/101
--- NOTE | 2022-11-26 13:38 | Progress Note - Hospitalist ---
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 He ahs known bradycardia since February of last year and has been following with Dr Nunez. He is normaly in the 40s. Yesterday staff at [facility] noted him ot have a heart rate in nery 30s and brought him to the hospital for evaluation. His sister is at bedside and provides all of the history. He was found to have a complete heart block and admitted to cardiology for evaluation for possible pacemaker. He has had rates as low at 27 overnight but remains asymptomatic. Subjective/Events-last exam He is doing well. He has no complaints. Objective Exam Vital Signs Vital Signs Date Time Temp Pulse Resp B/P (MAP) Pulse Ox O2 Delivery O2 Flow Rate FiO2 11/26/22 10:50 36.7 60 20 167/101 99 Room Air 11/25/22 18:00 4.00 Capillary Refill : Less Than 3 Seconds General Appearance: No Apparent Distress, Obese Respiratory: Lungs Clear, No Respiratory Distress Cardiovascular: Regular Rate, Rhythm, No Murmur Gastrointestinal: Normal Bowel Sounds, Soft Extremity: Normal Inspection, No Pedal Edema Neurologic/Psychiatric: Alert, Normal Mood/Affect Results/Procedures Lab Laboratory Tests 11/26/22 04:00 Patient resulted labs reviewed. Imaging: Reviewed Imaging Report Assessment/Plan Assessment and Plan Assess & Plan/Chief Complaint Complete heart block s/p Pacemaker Cefuroxime Cardiology primary HTN Intellectual disability Left side weakness No acute needs Sister is decision maker for patient- guardian per records here Diagnosis/Problems Diagnosis/Problems (1) Third degree heart block Status: Acute (2) HTN (hypertension) Status: Chronic (3) Intellectual disability Status: Chronic (4) Obesity Status: Chronic Clinical Quality Measures AMI/AHF: ASA po Prior to arrival: ELHAM Haley MD Nov 26, 2022 13:38
--- NOTE | 2022-11-27 14:34 | Physician Query Clarification ---
PQ-Further Specificity Admission/Discharge Admission Date: Nov 23, 2022 at 16:41 Discharge Date: Nov 26, 2022 at 11:44 Dr. Nunez, The medical record reflects the following clinical scenario: History/Risk Factors: [list no more than 2] Clinical Findings: [list no more than 2] Treatment: [list no more than 2] Question: Can you further specify [diagnosis/condition] per the clinical indicators above? Please document a response in the Progress Notes or Discharge Summary. 1. [list the #1 diagnosis/condition choice] 2. [list the diagnosis/condition already documented] 3. Other, with explanation of the clinical findings. 4. Clinically undetermined, no explanation for the clinical findings. In responding to this query, please exercise your independent professional judgment. The purpose of this communication is to more accurately reflect the complexity of your patients condition. The fact that a question is asked does not imply that any particular answer is desired or expected. Thank you for your timely response to this clarification. Requestors name: [ ] Phone # [ ] THIS PHYSICIAN QUERY FORM IS A PERMANENT PART OF THE MEDICAL RECORD SIENNA MCKEON Nov 27, 2022 14:34
--- NOTE | 2022-11-27 14:52 | Physician Query Clarification ---
PQ-Further Specificity Admission/Discharge Admission Date: Nov 23, 2022 at 16:41 Discharge Date: Nov 26, 2022 at 11:44 Dr. Nunez, The medical record reflects the following clinical scenario: History/Risk Factors: complete heart block, intellectual disabilities, contracture lt hand Clinical Findings: lt sided weakness, weakness/contractures lt hand Treatment: dual chamber pacemaker Question: Can you further specify patient's left sided deficit per the clinical indicators above? Please document a response in the Progress Notes or Discharge Summary. 1. Lt sided weakness meaning Lt hemiplegia 2. weakness/contractures Lt hand meaning monoplegia 3. weakness lt side not further specified as hemiplegia or monoplegia 4. Other, with explanation of the clinical findings. 5. Clinically undetermined, no explanation for the clinical findings. PHYSICIAN RESPONSE Can you specify per above: 2 In responding to this query, please exercise your independent professional judgment. The purpose of this communication is to more accurately reflect the complexity of your patients condition. The fact that a question is asked does not imply that any particular answer is desired or expected. Thank you for your timely response to this clarification. Requestors name: Sienna THIS PHYSICIAN QUERY FORM IS A PERMANENT PART OF THE MEDICAL RECORD SIENNA MCKEON Nov 27, 2022 14:52 KYARA NUNEZ MD Nov 27, 2022 15:59
== END 2022-11-26 11:44 | disposition home or self-care (01) | DRG 244 ==
LOC: EDUNIT# 15:08 → ER 15:10 → ICU 16:41 → CSD 11-26 07:05
PROVIDERS: ADMIT Internal Medicine Cardiovascular Disease; ATTEND Internal Medicine Cardiovascular Disease
PROC: 02H63JZ Insertion of Pacemaker Lead into Right Atrium, Percutaneous Approach (ICD-10-PCS; principal; 2022-11-25)
PROC: 0JH606Z Insertion of Pacemaker, Dual Chamber into Chest Subcutaneous Tissue and Fascia, Open Approach (ICD-10-PCS; 2022-11-25)
PROC: 02HK3JZ Insertion of Pacemaker Lead into Right Ventricle, Percutaneous Approach (ICD-10-PCS; 2022-11-25)
DX: I44.2 Atrioventricular block, complete (principal); F79 Unspecified intellectual disabilities; I10 Essential (primary) hypertension; G83.24 Monoplegia of upper limb affecting left nondominant side; M24.542 Contracture, left hand; E78.5 Hyperlipidemia, unspecified; F32.A Depression, unspecified; F41.9 Anxiety disorder, unspecified
CPT/HCPCS: 33208; 36415; 71045; 80053; 80061; 83735; 83874; 83880; 84443; 84484; 85025; 85027; 85610; 85730; 93005; 93041; 93306

== ENCOUNTER 2023-09-05 10:44 | Observation (INO) | payer MEDICARE, MEDICAID ==
[~2023-09-05] VITALS: Ht 182.8 cm; Wt 106.5 kg
[~2023-09-05 10:44] MED LIST: ACET325T38 PO; ASPI-1238 PO; ATOR20TA66 PO; CALC500T7 PO; CARB200T6 PO; CEFU500T63 PO; DIPH25TA65 PO; GUAI5LIQ14 PO; HYDR453. TP; LISI1TAB46 PO; LOPE-175 PO; MAGN400O7 PO; MELO15TA39 PO; NEOM1OIN19 TP; OXYB5TAB13 PO; POLY30DR6 OU; SERT-414 PO; TERB250T88 PO
[2023-09-05] MEDS ORDERED: ASPIRIN 81 MG CHEWABLE TABLET PO ONE (11:00)
[2023-09-05 11:07] VITALS: BP_SYST 118; BP_SYST 121; BP_SYST 141; BP_DIAS 58; BP_DIAS 65
--- NOTE | 2023-09-05 11:10 | ED Chest Pain ---
General Chief Complaint: Chest Pain Stated Complaint: PACEMAKER | CHEST PAINS Nursing Triage Note: PT AMB TO [facility] WITH COMPLAINT OF CP, ABD PAIN, NECK PAIN. PT IS FROM [place]. CAREGIVERS SAID THAT PT WAS COMPLAINING OF CP AND VOMITING LAST NIGHT. HX OF PACEMAKER. Source: patient, caregiver (Resident at [facility]) Exam Limitations: other (cognitive delay) History of Present Illness Date Seen by Provider: Sep 05, 2023 Time Seen by Provider: 11:00 Initial Comments 63 YO male with PMH of pacemaker due to third degree heart block, presents to ED with caregivers c/o chest pain. Caregivers report he is a resident of [place] and began having chest pain last night with several episodes of vomiting. Per caregiver she found him this morning leaning over the sink c/o left arm pain, chest pain, and nausea. He was taken to his PCP who recommended ED evaluation due to pacemaker history and presentation. Pt reports he does not have any chest pain at this time. He admits neck pain, abdominal pain, shortness of breath and dysuria. Denies leg pain, leg swelling, fever, chills, or any other sx. Caregivers reports there has been a "stomach bug" going around at the facility. He does not use tobacco, alcohol or recreational drugs. Timing/Duration: 24 hours, gone now Severity/Quality: moderate Location: substernal Radiation: arms (left arm) Activities at Onset: other (standing) Prior CP/Workup: other (pacemaker secondary to 3rd degree heart block) Modifying Factors: improves with rest ASA po AGING BOX HAND: No NTG SL AGING BOX HAND: No Associated Symptoms: abdominal pain, diaphoresis; No dizziness, No fever/chills, No headache, No heartburn; nausea/vomiting; No rash; shortness of breath; No syncope, No weakness Allergies and Home Medications Allergies Coded Allergies: phenytoin (Verified Allergy, Unknown, 11/23/22) Patient Home Medication List Home Medication List Reviewed: Yes Acetaminophen (Tylenol) 325 Mg Tablet, 650 MG PO Q6H PRN for PAIN-MILD (1-4) OR TEMPATURE, (Reported) Entered as Reported by: CALLY VALDES on 11/26/22 1026 Aspirin (Aspirin EC) 81 Mg Tablet.dr, 81 MG PO DAILY, (Reported) Entered as Reported by: CALLY VALDES on 11/26/22 1026 Atorvastatin Calcium (Atorvastatin Calcium) 20 Mg Tablet, 20 MG PO DAILY, (Reported) Entered as Reported by: CALLY VALDES on 11/26/22 1026 Calcium Carbonate (Tums) 200 Mg Calcium (500 Mg) Tab.chew, 1,000 MG PO Q4H PRN for HEARTBURN, (Reported) Entered as Reported by: CALLY VALDES on 11/26/22 1026 Carbamazepine (Carbamazepine) 200 Mg Tablet, 200 MG PO TID, (Reported) Entered as Reported by: CALLY VALDES on 11/26/22 1026 Cefuroxime Axetil (Cefuroxime) 500 Mg Tablet, 500 MG PO BID Prescribed by: KYARA BILLINGSLEY on 11/26/22 1041 Diphenhydramine HCl (Benadryl Allergy) 25 Mg Tablet, 25-50 MG PO Q6H PRN for ALLERGY SYMPTOMS, (Reported) Entered as Reported by: CALLY VALDES on 11/26/22 1026 Guaifenesin/Dextromethorphan (Guaifenesin-Dm 100-10 mg/5 ml) 100 Mg-10 Mg/5 Ml Liquid, 10 ML PO Q4H PRN for COUGH, (Reported) Entered as Reported by: CALLY VALDES on 11/26/22 1026 Hydrocortisone (Hydrocortisone) 1 % Cream..g., 1 APPLIC TP Q8H PRN for RASH, (Reported) Entered as Reported by: CALLY VALDES on 11/26/22 1026 Lisinopril/Hydrochlorothiazide (Lisinopril-Hctz 20-12.5 mg Tab) 20 Mg-12.5 Mg Tablet, 2 EA PO DAILY, (Reported) Entered as Reported by: CALLY VALDES on 11/26/22 1026 Loperamide HCl (Imodium A-D) 2 Mg Capsule, 2-4 MG PO UD PRN for DIARRHEA, (Reported) Entered as Reported by: CALLY VALDES on 11/26/22 1026 Magnesium Hydroxide (Milk of Magnesia) 400 Mg/5 Ml Oral.susp, 30 ML PO Q12H PRN for CONSTIPATION-7TH LINE, (Reported) Entered as Reported by: CALLY VALDES on 11/26/22 1026 Meloxicam (Meloxicam) 15 Mg Tablet, 15 MG PO DAILY, (Reported) Entered as Reported by: CALLY VALDES on 11/26/22 1026 Neomycin/Bacitracin/Polymyxinb (Triple Antibiotic Ointment Pkt) 3.5 Mg-400 Unit- 5,000 Unit/Gram Oint.pack, 1 APPLIC TP Q12H PRN for CUTS/ABRASIONS, (Reported) Entered as Reported by: CALLY VALDES on 11/26/22 1026 Oxybutynin Chloride (Oxybutynin Chloride) 5 Mg Tablet, 5 MG PO DAILY, (Reported) Entered as Reported by: CALLY VALDES on 11/26/22 1026 Polyethylene Glycol 400 (Visine Dry Eye Relief) 1 % Drops, 2 DROP OU Q6H PRN for DRY EYES, (Reported) Entered as Reported by: CALLY VALDES on 11/26/22 1026 Sertraline HCl (Sertraline HCl) 100 Mg Tablet, 100 MG PO DAILY, (Reported) Entered as Reported by: CALLY VALDES on 11/26/22 1026 Terbinafine HCl (Terbinafine HCl) 250 Mg Tablet, 250 MG PO DAILY, (Reported) Entered as Reported by: CALLY VALDES on 11/26/22 1026 Review of Systems Review of Systems Constitutional: No chills; diaphoresis; No fever EENTM: No Blurred Vision, No Double Vision Respiratory: Denies Cough; Shortness of Air Cardiovascular: Chest Pain; Denies Irregular Heart Rate Gastrointestinal: Abdominal Pain (generalized), Nausea, Vomiting (2 episodes last night, none today) Genitourinary: Burning Musculoskeletal: No back pain; neck pain Skin: No pruritus, No rash Psychiatric/Neurological: Denies Tremors, Denies Weakness All Other Systems Reviewed Negative Unless Noted: Yes Past Qkwbgpy-Uryncv-Ghekzz Hx Patient Social History Tobacco Use?: No Use of E-Cig and/or Vaping dev: No Substance use?: No Alcohol Use?: No Pt feels they are or have been: No Past Medical History Meningitis Physical Exam Vital Signs Vital Signs - First Documented 09/05/23 10:47 Temp 37.3 Pulse 82 Resp 12 B/P (MAP) 133/91 (105) O2 Delivery Room Air Capillary Refill : Less Than 3 Seconds Height, Weight, BMI Height: '" Weight: lbs. oz. kg; 33.00 BMI Method: General Appearance: No Apparent Distress, WD/WN, Other (Diaphoretic. Developmental/cognitive delay) HEENT: PERRL/EOMI, TMs Normal Neck: Normal Inspection, Non Tender, Supple Respiratory: Chest Non Tender, Lungs Clear, Normal Breath Sounds, No Accessory Muscle Use, No Respiratory Distress Cardiovascular: Regular Rate, Rhythm (pacemaker to left chest), No Edema, No Gallop, Normal Peripheral Pulses, Systolic Murmur Gastrointestinal: Normal Bowel Sounds, No Organomegaly, No Pulsatile Mass, Non Tender (abdomen was non tender to palpation of all quadrants), Soft; No Mass, No Rebound, No Tenderness Extremity: Normal Capillary Refill, Normal Inspection, Normal Range of Motion, Non Tender, No Calf Tenderness, No Pedal Edema Neurologic/Psychiatric: Alert, Oriented x3, No Motor/Sensory Deficits, Normal Mood/Affect Skin: Normal Color, Warm/Dry Lymphatic: No Adenopathy Progress/Results/Core Measures Results/Orders Lab Results Laboratory Tests Test 09/05/23 11:04 Range/Units White Blood Count 9.5 4.3-11.0 10^3/uL Red Blood Count 4.31 4.30-5.52 10^6/uL Hemoglobin 13.7 13.3-17.7 g/dL Hematocrit 39 L 40-54 % Mean Corpuscular Volume 91 80-99 fL Mean Corpuscular Hemoglobin 32 25-34 pg Mean Corpuscular Hemoglobin Concent 35 32-36 g/dL Red Cell Distribution Width 11.9 10.0-14.5 % Platelet Count 230 130-400 10^3/uL Mean Platelet Volume 9.7 9.0-12.2 fL Immature Granulocyte % (Auto) 0 % Neutrophils (%) (Auto) 71 42-75 % Lymphocytes (%) (Auto) 16 12-44 % Monocytes (%) (Auto) 9 0-12 % Eosinophils (%) (Auto) 3 0-10 % Basophils (%) (Auto) 0 0-10 % Neutrophils # (Auto) 6.8 1.8-7.8 10^3/uL Lymphocytes # (Auto) 1.6 1.0-4.0 10^3/uL Monocytes # (Auto) 0.9 0.0-1.0 10^3/uL Eosinophils # (Auto) 0.3 0.0-0.3 10^3/uL Basophils # (Auto) 0.0 0.0-0.1 10^3/uL Immature Granulocyte # (Auto) 0.0 0.0-0.1 10^3/uL Sodium Level 136 135-145 MMOL/L Potassium Level 3.8 3.6-5.0 MMOL/L Chloride Level 102 98-107 MMOL/L Carbon Dioxide Level 25 21-32 MMOL/L Anion Gap 9 5-14 MMOL/L Blood Urea Nitrogen 18 7-18 MG/DL Creatinine 1.18 0.60-1.30 MG/DL Estimat Glomerular Filtration Rate 69 BUN/Creatinine Ratio 15 Glucose Level 102 70-105 MG/DL Calcium Level 9.0 8.5-10.1 MG/DL Corrected Calcium 9.0 8.5-10.1 MG/DL Magnesium Level 2.2 1.6-2.4 MG/DL Total Bilirubin 0.3 0.1-1.0 MG/DL Aspartate Amino Transf (AST/SGOT) 13 5-34 U/L Alanine Aminotransferase (ALT/SGPT) 14 0-55 U/L Alkaline Phosphatase 78 40-136 U/L Troponin I < 0.028 <0.028 NG/ML Total Protein 7.3 6.4-8.2 GM/DL Albumin 4.0 3.2-4.5 GM/DL Medications Given in ED Current Medications Medications Dose Ordered Sig/Clyde Route Start Time Stop Time Status Last Admin Dose Admin Aspirin 324 mg ONCE ONCE PO 09/05/23 11:00 09/05/23 11:01 DC 09/05/23 11:02 324 MG Vital Signs/I&O 09/05/23 10:47 Temp 37.3 Pulse 82 Resp 12 B/P (MAP) 133/91 (105) O2 Delivery Room Air Blood Pressure Mean: 105 Progress Progress Note : Time: 11:27 Progress Note Initial impression: 63 YO male with pacemaker presented to ED with 24 hours of chest pain, nausea, and vomiting. He is afebrile with vital signs requiring no immediate intervention. Exam is remarkable for diaphoresis, chronic systolic heart murmur, normal rhythm, lungs CTAB, no abdominal tenderness. DDx includes ACS, aortic dissection, PTX, PE, tamponade, musculoskeletal, PNA, GERD, vs others. Low likelihood of aortic dissection with reassuring vitals, duration > 24 hours, and reassuring history. Less likely to be PTX, tamponade or PE as his vitals are stable, he has no lung findings, no history of DVT or tobacco use. Will obtain CBC, CMP, troponin, chest xray and UA. Labs: CBC within normal limits, electrolytes unremarkable, negative troponin, urine pending Imaging: CXR showed some cardiomegaly with central vascular congestion. No evidence of PNA or PTX. 1152: Pt resting comfortably in bed with caregivers at bedside. Troponin negativ e and EKG showed paced rhythm with no signs of ST elevation. However, given his cardiac history and concerning presentation of diaphoresis and chest pain, we plan to admit to hospital for further cardiac workup. Pt and caregiver agree with plan. Initial ECG Impression Date: Sep 05, 2023 Initial ECG Impression Time: 10:55 Initial ECG Rate: 69 Initial ECG Rhythm: Normal Sinus (paced rhythm) Initial ECG Intervals: Normal Initial ECG Intervals QRS 182, QT 452 Comment Paced rhythm with left axis deviation. Normal intervals. No ST elevation or T wave depression. EKG : Rhythm: paced rhythm Intervals: Normal Departure Departure-Patient Inst. Referrals: CHRISTIAN LOERA DO (PCP) Primary Care Physician ARIA RODRIGUEZ MD (Family) Primary Care Physician SOL WILLS Sep 05, 2023 11:10
[2023-09-05 11:12] LABS: BASOPHILS % (AUTO) 0 % (0-10); EOSINOPHILS # (AUTO) 0.3 10^3/uL (0.0-0.3); EOSINOPHILS % (AUTO) 3 % (0-10); HEMATOCRIT 39 % (40-54); HEMOGLOBIN 13.7 g/dL (13.3-17.7); LYMPHOCYTES # (AUTO) 1.6 10^3/uL (1.0-4.0); LYMPHOCYTES % (AUTO) 16 % (12-44); MEAN CORPUSCULAR HEMOGLOBIN 32 pg (25-34); MEAN CORPUSCULAR HGB CONC 35 g/dL (32-36); MEAN CORPUSCULAR VOLUME 91 fL (80-99); MEAN PLATELET VOLUME 9.7 fL (9.0-12.2); MONOCYTES # (AUTO) 0.9 10^3/uL (0.0-1.0); MONOCYTES % (AUTO) 9 % (0-12); NEUTROPHILS # (AUTO) 6.8 10^3/uL (1.8-7.8); NEUTROPHILS % (AUTO) 71 % (42-75); PLATELET COUNT 230 10^3/uL (130-400); WHITE BLOOD COUNT 9.5 10^3/uL (4.3-11.0)
--- NOTE | 2023-09-05 11:21 | Diagnostic Imaging Report ---
INDICATION: Abdominal and chest pain. TECHNIQUE: Frontal chest obtained at 11:14 a.m. and compared to 11/25/2022. FINDINGS: Pacemaker is unchanged. There is mild cardiomegaly and central vascular prominence. There is poor inspiration but no focal infiltrate or pneumothorax or pleural fluid. IMPRESSION: Mild cardiomegaly with central vascular prominence. Stable pacemaker device. No new infiltrate or pneumothorax or pleural fluid. Dictated by: Dictated on workstation # [id number]
[2023-09-05 11:22] LABS: CHLORIDE 102 MMOL/L (98-107); POTASSIUM 3.8 MMOL/L (3.6-5.0); SODIUM 136 MMOL/L (135-145)
[2023-09-05 11:25] LABS: GLUCOSE 102 MG/DL (70-105); TOTAL PROTEIN 7.3 GM/DL (6.4-8.2)
[2023-09-05 11:26] LABS: CARBON DIOXIDE 25 MMOL/L (21-32)
[2023-09-05 11:27] LABS: BILIRUBIN,TOTAL 0.3 MG/DL (0.1-1.0)
[2023-09-05 11:28] LABS: ALKALINE PHOSPHATASE 78 U/L (40-136); CREATININE SERUM 1.18 MG/DL (0.60-1.30); GFR ESTIMATED 69
[2023-09-05 11:30] LABS: BUN/CREATININE RATIO 15
[2023-09-05 11:31] LABS: ALANINE AMINOTRANSFERASE 14 U/L (0-55); MAGNESIUM 2.2 MG/DL (1.6-2.4)
[2023-09-05 13:15] LABS: BACTERIA,URINE NEGATIVE /HPF; BILIRUBIN,URINE NEGATIVE (NEGATIVE); CLARITY,URINE CLEAR; COLOR,URINE YELLOW; GLUCOSE, URINE (UA) NEGATIVE (NEGATIVE); KETONES,URINE NEGATIVE (NEGATIVE); LEUKOCYTE ESTERASE ,URINE NEGATIVE (NEGATIVE); NITRITE,URINE NEGATIVE (NEGATIVE); PH,URINE 6.5 (5-9); PROTEIN,URINE 1+ (NEGATIVE); RBC,URINE RARE /HPF
[2023-09-05] MEDS ORDERED: LACTULOSE SYRUP 10GM/15ML 30ML UDC PO PRN (14:30)
[2023-09-05] MEDS ORDERED: ONDANSETRON INJECTION 4 MG/2 ML (SDV) IV PRN (14:30)
[2023-09-05] MEDS ORDERED: ENOXAPARIN 40 MG/0.4 ML SYRINGE SC SCH (14:30)
[2023-09-05] MEDS ORDERED: CALCIUM CARBONATE 500 MG CHEW TABLET PO PRN (14:30)
[2023-09-05] MEDS ORDERED: BISACODYL 10 MG SUPPOSITORY PR PRN (14:30)
[2023-09-05] MEDS ORDERED: ONDANSETRON 4 MG ORAL DISSOLVE TABLET PO PRN (14:30)
[2023-09-05] MEDS ORDERED: diphenhydrAMINE 25 MG TABLET PO PRN (14:30)
[2023-09-05] MEDS ORDERED: ANTACID SUSPENSION 30 ML UDC PO PRN (14:30)
[2023-09-05] MEDS ORDERED: MELATONIN 3 MG TABLET PO PRN (14:30)
[2023-09-05] MEDS ORDERED: ACETAMINOPHEN 325 MG TABLET PO PRN (14:30)
[2023-09-05] MEDS ORDERED: MILK OF MAGNESIA 400 MG/5 ML 30 ML UDC PO PRN (14:30)
[2023-09-05] MEDS ORDERED: diphenhydrAMINE INJ 50 MG/ML VIAL IVP PRN (14:30)
[2023-09-05] MEDS ORDERED: OMEG100032 PO (14:45)
[2023-09-05] MEDS ORDERED: MTP25TSR PO (14:45)
[2023-09-05 14:47] VITALS: BP 134/83
[2023-09-05 16:10] VITALS: BP 132/79
[2023-09-05 19:39] VITALS: BP 112/67
[2023-09-05] MEDS: carBAMazepine 200 MG TABLET PO SCH (21:23)
[2023-09-05] MEDS: DOCUSATE SODIUM 100 MG CAPSULE PO SCH (21:26)
[2023-09-05] MEDS: SENNOSIDES 8.6 MG TABLET PO SCH (21:26)
[2023-09-06 00:24] VITALS: BP 115/65
[2023-09-06 04:11] VITALS: BP 97/55
[2023-09-06 04:29] VITALS: BP 115/66
[2023-09-06 06:12] LABS: BASOPHILS % (AUTO) 0 % (0-10); EOSINOPHILS # (AUTO) 0.3 10^3/uL (0.0-0.3); EOSINOPHILS % (AUTO) 3 % (0-10); HEMATOCRIT 38 % (40-54); LYMPHOCYTES # (AUTO) 1.9 10^3/uL (1.0-4.0); LYMPHOCYTES % (AUTO) 20 % (12-44); MEAN CORPUSCULAR HEMOGLOBIN 31 pg (25-34); MEAN CORPUSCULAR HGB CONC 34 g/dL (32-36); MEAN CORPUSCULAR VOLUME 91 fL (80-99); MEAN PLATELET VOLUME 9.7 fL (9.0-12.2); MONOCYTES # (AUTO) 0.9 10^3/uL (0.0-1.0); MONOCYTES % (AUTO) 9 % (0-12); NEUTROPHILS # (AUTO) 6.3 10^3/uL (1.8-7.8); NEUTROPHILS % (AUTO) 67 % (42-75); PLATELET COUNT 208 10^3/uL (130-400); WHITE BLOOD COUNT 9.5 10^3/uL (4.3-11.0)
[2023-09-06 07:37] VITALS: BP 127/59
[2023-09-06] MEDS ORDERED: OXYBUTYNIN 5 MG TABLET PO SCH (09:00)
[2023-09-06] MEDS ORDERED: ASPIRIN enteric coated 81MG TABLET PO SCH (09:00)
[2023-09-06] MEDS ORDERED: TERBINAFINE HCL 250 MG PO SCH (09:00)
[2023-09-06] MEDS ORDERED: SERTRALINE 100 MG TABLET PO SCH (09:00)
[2023-09-06] MEDS ORDERED: PANTOPRAZOLE 40 MG TABLET PO SCH (09:00)
[2023-09-06] MEDS: DOCUSATE SODIUM 100 MG CAPSULE PO SCH (09:08)
[2023-09-06] MEDS: carBAMazepine 200 MG TABLET PO SCH (09:08)
[2023-09-06] MEDS: SENNOSIDES 8.6 MG TABLET PO SCH (09:09)
[2023-09-06] MEDS ORDERED: PANTOPRAZOLE 40 MG TABLET PO ONE (09:11)
[2023-09-06] MEDS ORDERED: PANT40TA2 PO (10:38)
--- NOTE | 2023-09-06 10:47 | Consultation-Cardiology ---
HPI-Cardiology Cardiology Consultation Date of Consultation 09/06/23 Date of Admission Time Seen by Provider: 10:43 Indication: Chest pain HPI 63-year-old gentleman with a history of permanent pacemaker secondary to complete heart block. Patient is a resident of [place] has cognitive deficits. Unable to provide full history, apparently he was transferred to the emergency room with chest pain and nausea. On my evaluation was laying down comfortably in bed. Denied any active chest pain, no nausea. No new complaint. No shortness of breath. EKG is paced rhythm, cardiac enzymes were negative Home Medications & Allergies Allergies: Coded Allergies: phenytoin (Verified Allergy, Unknown, 11/23/22) Home Medication List Reviewed: Yes [id number] Hx Patient Social History Marital Status: single Employed/Student: unemployed Smoking Status: Former Smoker Alcohol Use?: No Immunizations Up To Date Date of Influenza Vaccine: Aug 23, 2022 Past Medical History Discussed below Family Medical History Significant Family History: No Pertinent Family Hx Review of Systems-General Review of Systems Constitutional: diaphoresis Cardiovascular: chest pain; No edema, No Hx of Intervention, No palpitations, No syncope, No vascular heart diseas, No other Musculoskeletal: neck pain Skin: No pruritus, No rash Psychiatric/Neurological: Denies Tremors, Denies Weakness All Other Systems Reviewed Negative Unless Noted: Yes Reviewed Test Results Reviewed Test Results Lab Laboratory Tests Test 09/05/23 11:04 09/05/23 12:50 09/05/23 15:48 09/05/23 20:47 Range/Units White Blood Count 9.5 4.3-11.0 10^3/uL Red Blood Count 4.31 4.30-5.52 10^6/uL Hemoglobin 13.7 13.3-17.7 g/dL Hematocrit 39 L 40-54 % Mean Corpuscular Volume 91 80-99 fL Mean Corpuscular Hemoglobin 32 25-34 pg Mean Corpuscular Hemoglobin Concent 35 32-36 g/dL Red Cell Distribution Width 11.9 10.0-14.5 % Platelet Count 230 130-400 10^3/uL Mean Platelet Volume 9.7 9.0-12.2 fL Immature Granulocyte % (Auto) 0 % Neutrophils (%) (Auto) 71 42-75 % Lymphocytes (%) (Auto) 16 12-44 % Monocytes (%) (Auto) 9 0-12 % Eosinophils (%) (Auto) 3 0-10 % Basophils (%) (Auto) 0 0-10 % Neutrophils # (Auto) 6.8 1.8-7.8 10^3/uL Lymphocytes # (Auto) 1.6 1.0-4.0 10^3/uL Monocytes # (Auto) 0.9 0.0-1.0 10^3/uL Eosinophils # (Auto) 0.3 0.0-0.3 10^3/uL Basophils # (Auto) 0.0 0.0-0.1 10^3/uL Immature Granulocyte # (Auto) 0.0 0.0-0.1 10^3/uL Sodium Level 136 135-145 MMOL/L Potassium Level 3.8 3.6-5.0 MMOL/L Chloride Level 102 98-107 MMOL/L Carbon Dioxide Level 25 21-32 MMOL/L Anion Gap 9 5-14 MMOL/L Blood Urea Nitrogen 18 7-18 MG/DL Creatinine 1.18 0.60-1.30 MG/DL Estimat Glomerular Filtration Rate 69 BUN/Creatinine Ratio 15 Glucose Level 102 70-105 MG/DL Calcium Level 9.0 8.5-10.1 MG/DL Corrected Calcium 9.0 8.5-10.1 MG/DL Magnesium Level 2.2 1.6-2.4 MG/DL Total Bilirubin 0.3 0.1-1.0 MG/DL Aspartate Amino Transf (AST/SGOT) 13 5-34 U/L Alanine Aminotransferase (ALT/SGPT) 14 0-55 U/L Alkaline Phosphatase 78 40-136 U/L Troponin I < 0.028 < 0.028 < 0.028 <0.028 NG/ML Total Protein 7.3 6.4-8.2 GM/DL Albumin 4.0 3.2-4.5 GM/DL Urine Color YELLOW Urine Clarity CLEAR Urine pH 6.5 5-9 Urine Specific [place] 1.020 1.016-1.022 Urine Protein 1+ H NEGATIVE Urine Glucose (UA) NEGATIVE NEGATIVE Urine Ketones NEGATIVE NEGATIVE Urine Nitrite NEGATIVE NEGATIVE Urine Bilirubin NEGATIVE NEGATIVE Urine Urobilinogen 1.0 < = 1.0 MG/DL Urine Leukocyte Esterase NEGATIVE NEGATIVE Urine RBC (Auto) NEGATIVE NEGATIVE Urine RBC RARE /HPF Urine WBC NONE /HPF Urine Crystals NONE /LPF Urine Bacteria NEGATIVE /HPF Urine Casts NONE /LPF Urine Mucus SMALL H /LPF Urine Culture Indicated NO Test 09/06/23 05:45 Range/Units White Blood Count 9.5 4.3-11.0 10^3/uL Red Blood Count 4.17 L 4.30-5.52 10^6/uL Hemoglobin 13.0 L 13.3-17.7 g/dL Hematocrit 38 L 40-54 % Mean Corpuscular Volume 91 80-99 fL Mean Corpuscular Hemoglobin 31 25-34 pg Mean Corpuscular Hemoglobin Concent 34 32-36 g/dL Red Cell Distribution Width 11.9 10.0-14.5 % Platelet Count 208 130-400 10^3/uL Mean Platelet Volume 9.7 9.0-12.2 fL Immature Granulocyte % (Auto) 0 % Neutrophils (%) (Auto) 67 42-75 % Lymphocytes (%) (Auto) 20 12-44 % Monocytes (%) (Auto) 9 0-12 % Eosinophils (%) (Auto) 3 0-10 % Basophils (%) (Auto) 0 0-10 % Neutrophils # (Auto) 6.3 1.8-7.8 10^3/uL Lymphocytes # (Auto) 1.9 1.0-4.0 10^3/uL Monocytes # (Auto) 0.9 0.0-1.0 10^3/uL Eosinophils # (Auto) 0.3 0.0-0.3 10^3/uL Basophils # (Auto) 0.0 0.0-0.1 10^3/uL Immature Granulocyte # (Auto) 0.0 0.0-0.1 10^3/uL Physical Exam Physical Exam Vital Signs Vital Signs - First Documented 09/05/23 09/05/23 10:47 14:07 Temp 37.3 Pulse 82 Resp 12 B/P (MAP) 133/91 (105) Pulse Ox 93 O2 Delivery Room Air Capillary Refill : Less Than 3 Seconds Height, Weight, BMI Height: '" Weight: lbs. oz. kg; 31.87 BMI Method: General Appearance: No Apparent Distress, WD/WN, Other HEENT: PERRL/EOMI, TMs Normal Neck: Normal Inspection, Non Tender, Supple Respiratory: Chest Non Tender, Lungs Clear, Normal Breath Sounds, No Accessory Muscle Use, No Respiratory Distress Cardiovascular: Regular Rate, Rhythm, No Edema, No Gallop, Normal Peripheral Pulses, Systolic Murmur Gastrointestinal: Normal Bowel Sounds, No Organomegaly, No Pulsatile Mass, Non Tender, Soft Extremity: Normal Capillary Refill, Normal Inspection, Normal Range of Motion, Non Tender, No Calf Tenderness, No Pedal Edema Neurologic/Psychiatric: Alert, Oriented x3, No Motor/Sensory Deficits, Normal Mood/Affect Skin: Normal Color, Warm/Dry Lymphatic: No Adenopathy A/P-Cardiology Admission Diagnosis Chest pain Complete heart block Cardiac pacemaker Hypertension Hyperlipidemia Assessment/Plan Chest pain, nonspecific etiology Cardiac enzymes were negative Multiple risk factors for coronary artery disease Conservative management is recommended. We can consider stress test in the future as an outpatient Complete heart block, history of dual-chamber pacemaker implanted in November 2022. Pacer is functioning normally. Continue to monitor Hypertension, history of labile blood pressure Controlled at this time, restart home medication. Amlodipine was discontinued in June 2023. Hyperlipidemia, maintained on Lipitor 20 mg daily Anxiety, depression History of cognitive disability Okay for discharge Clinical Quality Measures AMI/AHF: ASA po Prior to arrival: KYARA Perkins MD Sep 06, 2023 10:47
--- NOTE | 2023-09-06 18:16 | Short Stay Summary-Hospitalist ---
History of Present Illness HPI/Chief Complaint Leonard Barone Jr is a 63 year old male with PMH cognitive impairment, third degree heart block s/p pacemaker, hypertension, who was admitted with chest pain. He was reportedly having chest pain with radiation to his arm. He was also diaphoretic. He is a poor historian and unable to substantiate the history. His sister is present. She says he would not have said he had chest pain due to his disability. He does deny chest pain and shortness of breath at this time. He does have a family history of heart disease in his parents. Source: patient, family Exam Limitations: clinical condition, other (cognitive impairment) Date Seen 09/06/23 Time Seen by a Provider: 10:45 Attending Physician Campos Pablo DO PCP Admitting Physician: Elham Morejon MD Attending Physician: Elham Morejon MD Referring Physician Date of Admission Sep 05, 2023 at 14:06 Home Medications & Allergies Home Medications Reviewed patient Home Medication Reconciliation performed by pharmacy medication reconciliations hvac controls technician and/or nursing. Patients Allergies have been reviewed. Allergies Allergies Coded Allergies phenytoin (Verified Allergy, Unknown, 11/23/22) Past [id number] Hx Patient Social History Marrital Status: single Employed/Student: unemployed Tobacco Use?: Yes Tobacco type used: Cigarettes Smoking Status: Former Smoker Use of E-Cig and/or Vaping dev: No Substance use?: No Alcohol Use?: No Pt feels they are or have been: No Immunizations Up To Date Date of Influenza Vaccine: Aug 23, 2022 Current Status Advance Directives: Yes Advance Directive Location: Home Communicates: Verbally Primary Language: Mexican Preferred Spoken Language: Mexican Is interpretation needed?: No Implanted or Applied Medical D: Orthopedic hardware, Pacemaker Past Medical History Meningitis Family Medical History No Pertinent Family Hx Review of Systems Constitutional: no symptoms reported, see HPI Physical Exam Physical Exam Vital Signs Vital Signs - First Documented 09/05/23 09/05/23 10:47 14:07 Temp 37.3 Pulse 82 Resp 12 B/P (MAP) 133/91 (105) Pulse Ox 93 O2 Delivery Room Air Capillary Refill : Less Than 3 Seconds Height, Weight, BMI Height: '" Weight: lbs. oz. kg; 31.87 BMI Method: General Appearance: No Apparent Distress, WD/WN, Other HEENT: PERRL/EOMI, Pharynx Normal Neck: Normal Inspection, Supple Respiratory: Chest Non Tender, Lungs Clear, Normal Breath Sounds, No Accessory Muscle Use, No Respiratory Distress Cardiovascular: Regular Rate, Rhythm, No Edema Gastrointestinal: Normal Bowel Sounds, Non Tender, Soft Extremity: Normal Inspection, Non Tender, No Pedal Edema Neurologic/Psychiatric: Alert, No Motor/Sensory Deficits, Normal Mood/Affect Skin: Normal Color, Warm/Dry Results Results/Procedures Labs Laboratory Tests 09/05/23 11:04 09/06/23 05:45 Patient resulted labs reviewed. Imaging: Reviewed Imaging Report Short Stay Diagnosis Discharge Diagnosis-Short Stay Admission Diagnosis Chest pain Final Discharge Diagnosis Chest pain Conclusion Plan Chest pain Obesity HTN Possible GERD Cardiology consulted Troponin remained negative EKG unremarkable Consider stress test as outpatient Begin Protonix for possible GERD Diagnosis/Problems Diagnosis/Problems (1) Chest pain Status: Acute (2) HTN (hypertension) Status: Chronic (3) Obesity Status: Chronic (4) Intellectual disability Status: Chronic (5) GERD (gastroesophageal reflux disease) Status: Acute Qualifiers: Qualified Codes: K21.9 - Gastro-esophageal reflux disease without esophagitis Clinical Quality Measures AMI/AHF: ASA po Prior to arrival: ELHAM Haley MD Sep 06, 2023 18:16
== END 2023-09-06 13:03 | disposition home or self-care (01) ==
LOC: EDUNIT# 10:44 → ER 10:47 → 4TH 14:00 → UNDOADMOB 14:06 → 4TH 14:06 → UNDODISOB 09-06 13:03
PROVIDERS: ADMIT Internal Medicine; ATTEND Internal Medicine
DX: R07.9 Chest pain, unspecified (principal); E66.9 Obesity, unspecified; I10 Essential (primary) hypertension; K21.9 Gastro-esophageal reflux disease without esophagitis; I44.2 Atrioventricular block, complete; E78.5 Hyperlipidemia, unspecified; F41.9 Anxiety disorder, unspecified; F32.A Depression, unspecified; F79 Unspecified intellectual disabilities; Z87.891 Personal history of nicotine dependence; Z95.0 Presence of cardiac pacemaker; Z28.310 Unvaccinated for COVID-19; Z79.899 Other long term (current) drug therapy
CPT/HCPCS: 36415; 71045; 80053; 81000; 83735; 84484; 85025; 93005; 93041; 96372; G0378